=== PATIENT | female | born 1990 | race Caucasian/White ===

== ENCOUNTER → 2017-03-07 | Outpatient (REF) | payer MEDICAID, OTHER | LOC: M LAB REF 16:56 | PROVIDERS: ATTEND Advanced Practice Midwife | DX: Z11.3 Encounter for screening for infections with a predominantly sexual mode of transmission (principal) ==

== ENCOUNTER → 2017-03-07 | Outpatient (CLI) | payer MEDICAID, OTHER | LOC: M SMT 11:51 | PROVIDERS: ATTEND Advanced Practice Midwife | DX: Z11.3 Encounter for screening for infections with a predominantly sexual mode of transmission (principal) ==

== ENCOUNTER → 2017-03-21 | Outpatient (REF) | payer OTHER ==
[2017-03-21 17:35] LABS: ANION GAP 7 MEQ/L (8-16); BLOOD UREA NITROGEN 10 MG/DL (7-18); CALCIUM LEVEL 9.2 MG/DL (8.5-10.1); CARBON DIOXIDE LEVEL 27 MEQ/L (21-32); CHLORIDE LEVEL 107 MEQ/L (98-107); CREATININE FOR GFR 0.76 MG/DL (0.55-1.02); GLOMERULAR FILTRATION RATE > 60.0 (>60); GLUCOSE, FASTING 83 MG/DL (70-105); POTASSIUM SERUM 4.6 MEQ/L (3.5-5.1); SODIUM LEVEL 141 MEQ/L (136-145)
[2017-03-21 19:01] LABS: BASO % 0.9 % (0.0-1.0); EOS % 0.6 % (0.0-3.0); LARGE UNSTAINED CELL # 0.1 K/mm3 (0.0-0.4); LARGE UNSTAINED CELL % 2.5 % (0.0-4.0); LYMPH # 1.6 K/mm3 (1.5-6.5); LYMPH % 34.1 % (24.0-44.0); MEAN CORPUSCULAR HEMOGLOBIN 31.7 pg (27.0-33.0); MEAN CORPUSCULAR HGB CONC 33.3 g/dl (32.0-36.5); MEAN CORPUSCULAR VOLUME 95.2 fl (80.0-96.0); MONO # 0.4 K/mm3 (0.0-0.8); MONO % 7.4 % (0.0-5.0); NEUTROPHILS # 2.6 K/mm3 (1.8-7.7); NEUTROPHILS % 54.4 % (36.0-66.0); PLATELET COUNT, AUTOMATED 247 k/mm3 (150-450); WHITE BLOOD COUNT 4.7 K/mm3 (4.0-10.0)
[2017-03-21 20:16] LABS: ERYTHROCYTE SEDIMENTATION RATE 5 mm/hr (0-20)
== END ==
LOC: M LAB REF 16:13
PROVIDERS: ATTEND Family Medicine
DX: Z00.00 Encounter for general adult medical examination without abnormal findings (principal); F32.2 Major depressive disorder, single episode, severe without psychotic features; R55 Syncope and collapse

== ENCOUNTER → 2018-03-31 | Outpatient (CLI) | payer OTHER, MEDICAID ==
[2018-03-31 22:45] LABS: CHLAMYDIA DNA AMPLIFICATION NEGATIVE (NEGATIVE); GC DNA AMPLIFICATION NEGATIVE (NEGATIVE)
[2018-04-01 10:36] LABS: HEPATITIS C VIRUS ABY INDEX 0.1 INDEX (<0.8)
[2018-04-01 10:36] LABS: HEPATITIS B SURFACE ANTIGEN NEGATIVE (NEGATIVE); HIV 1&2 SCREEN CENTAUR NEGATIVE (NEGATIVE)
== END ==
LOC: M SMT 14:24
DX: Z11.3 Encounter for screening for infections with a predominantly sexual mode of transmission (principal)
CPT/HCPCS: 87340

== ENCOUNTER 2018-04-20 07:25 | Day surgery (SDC) | payer OTHER ==
[2018-04-20] MEDS ORDERED: ROCURONIUM BROMIDE 50 MG/5 ML VIAL As Ordered ×4 (07:50→07:52)
[2018-04-20] MEDS ORDERED: ONDANSETRON 4MG/2ML VIAL (J2405) As Ordered ×2 (07:50)
[2018-04-20] MEDS ORDERED: dexameTHASONE 4 MG/ML 1ML VIAL (J1100) As Ordered ×4 (07:50→09:06)
[2018-04-20] MEDS ORDERED: LIDOCAINE 2% INJ 100 MG/5 ML SDV (FOR ANES.) As Ordered ×4 (07:50→09:10)
[2018-04-20] MEDS ORDERED: PROPOFOL 200 MG/20 ML VIAL As Ordered ×2 (07:50)
[2018-04-20] MEDS ORDERED: fentaNYL 100 MCG/2 ML INJECTION (J3010) As Ordered ×2 (07:51)
[2018-04-20] MEDS ORDERED: MIDAZOLAM INJ 2 MG/2 ML VIAL (J2250) As Ordered ×2 (07:51)
[2018-04-20 08:07] LABS: CONTROL LINE UCG INT CTR LINE PRESENT; URINE PREG TEST NEGATIVE (NEGATIVE)
[2018-04-20] MEDS ORDERED: LR 1,000 ML IV ×4 (08:30→10:00)
[2018-04-20] MEDS ORDERED: LIDOCAINE 1% SDV 5 ML VIAL SQ ×2 (08:30)
[2018-04-20] MEDS ORDERED: GLYCOPYRROLATE INJ 0.2 MG/ML 2 ML VIAL As Ordered ×4 (08:52)
[2018-04-20] MEDS ORDERED: NEOSTIGMINE 10 MG/10 ML VIAL (J2710) As Ordered ×2 (08:52)
[2018-04-20] MEDS ORDERED: SUCCINYLCHOLINE 100 MG/5 ML SYRINGE (J0330) As Ordered ×2 (08:54)
[2018-04-20] MEDS: BUPIVACAINE HCL 0.5% 10 ML VIAL As Ordered ×2 (09:11)
[2018-04-20] MEDS ORDERED: MEPERIDINE INJ 25 MG/ML VIAL (J2175) IV ×2 (10:00)
[2018-04-20] MEDS ORDERED: ONDANSETRON 4MG/2ML VIAL (J2405) IV ×2 (10:00)
[2018-04-20] MEDS ORDERED: PERCOCET 5MG/325MG TAB PO ×4 (10:00)
[2018-04-20] MEDS ORDERED: fentaNYL 100 MCG/2 ML INJECTION (J3010) IV ×2 (10:00)
[2018-04-20] MEDS: HYDROcodone/APAP LIQUID 7.5-325MG 15ML UDC (LORTAB ELIXIR) PO ×2 (10:47)
[2018-04-20] MEDS: IBUPROFEN 800 MG TAB PO ×2 (10:48)
== END 2018-04-20 11:35 | disposition home or self-care (01) ==
LOC: M SDC 07:25
DX: J35.01 Chronic tonsillitis (principal); F32.9 Major depressive disorder, single episode, unspecified; F41.9 Anxiety disorder, unspecified
CPT/HCPCS: 42826

== ENCOUNTER 2018-04-25 10:59 | Emergency (ER) | payer OTHER ==
[2018-04-25] MEDS: KETOROLAC 30 MG/ML VIAL (J1885) IV (11:34)
[2018-04-25] MEDS: MORPHINE 4 MG/ML 1ML VIAL/SYRINGE (J2270) IV (11:34)
[2018-04-25] MEDS: NS 1,000 ML IV ×2 (11:35)
== END 2018-04-25 13:27 | disposition home or self-care (01) ==
LOC: M ED 10:59
DX: G89.18 Other acute postprocedural pain (principal)
CPT/HCPCS: J2270

== ENCOUNTER → 2018-04-27 | Outpatient (REF) | payer OTHER | LOC: M LAB REF 18:24 | DX: R87.612 Low grade squamous intraepithelial lesion on cytologic smear of cervix (LGSIL) (principal) | CPT/HCPCS: 88304 ==

== ENCOUNTER → 2018-06-30 | Outpatient (CLI) | payer OTHER ==
[~2018-06-30] MED LIST: FLAG500T PO; NORCOTAB PO; OXYC1TAB23 PO; PERC5TAB12 PO
--- NOTE | 2018-07-01 07:44 | REP ---
Clinical: Dating and viability. Technique: Transabdominal first trimester obstetrical ultrasound with color Doppler evaluation Findings: Single live early intrauterine is appreciated. Gestational sac with yolk sac and pole identified. Olive-rump length of 11 mm corresponds to 7 weeks 1 day gestational age with estimated date of delivery 02/15/2019 . heart rate equals 147 beats per minute. A small subchorionic hemorrhage identified inferior to the gestational sac measuring 14 x 8 x 21 mm. Impression: Single live early intrauterine at 7 weeks 1 day gestational age. Complete anatomical assessment should be performed and 19-20 weeks. Electronically Signed by Ac Allison MD 07/01/2018 07:35 A
== END ==
LOC: M RAD 12:20
PROVIDERS: ATTEND Nurse Practitioner Family
DX: Z36.89 Encounter for other specified antenatal screening (principal); Z3A.01 Less than 8 weeks gestation of pregnancy

== ENCOUNTER 2018-07-10 08:54 | Emergency (ER) | payer MEDICAID, OTHER ==
[~2018-07-10] VITALS: Ht 165.1 cm; Wt 68.2 kg
[~2018-07-10 08:54] MED LIST changes: -FLAG500T PO; -OXYC1TAB23 PO; -PERC5TAB12 PO
[2018-07-10] MEDS ORDERED: PERCOCET 5MG/325MG TAB PO ONE (09:30)
[2018-07-10 09:41] LABS: HEMATOCRIT 38.2 % (36.0-47.0); HEMOGLOBIN 12.7 g/dl (12.0-15.5); MEAN CORPUSCULAR HEMOGLOBIN 31.3 pg (27.0-33.0); MEAN CORPUSCULAR HGB CONC 33.2 g/dl (32.0-36.5); MEAN CORPUSCULAR VOLUME 94.1 fl (80.0-96.0); PLATELET COUNT, AUTOMATED 292 10^3/uL (150-450); RED BLOOD COUNT 4.06 10^6/uL (4.00-5.40); WHITE BLOOD COUNT 6.3 10^3/uL (4.0-10.0)
--- NOTE | 2018-07-10 10:56 | REP ---
Clinical: Status post medical . Evaluate for retained products of conception. Technique: Transabdominal pelvic ultrasound followed by transvaginal examination for better evaluation of the endometrium and adnexa with color Doppler evaluation of the ovaries. Findings: Bladder is partially collapsed and grossly unremarkable. Heterogeneous anteverted uterus measures 11.0 x 5.1 x 6.8 cm. The endometrial complex is heterogeneous and measures 23 mm thickness. Bilateral ovaries are normal in appearance and vascularity without evidence for torsion. Right ovary measures 3.2 x 2.2 x 2.0 cm with 1.8 cm complex cyst likely corpus luteum ; R I = 0.58 . Left ovary measures 3.1 x 1.0 x 1.4 cm ; R I = 0.64 . No significant pelvic fluid or adnexal mass lesion . Impression: 1. Thickened endometrium with subtle elements of vascularity are concerning for retained products of conception. 2. Suspected resolving right corpus luteal cyst. Electronically Signed by Ac Allison MD 07/10/2018 10:49 A
[2018-07-10 12:30] VITALS: BP 107/64
[2018-07-10] MEDS ORDERED: PERC5TAB12 PO (12:50)
[2018-07-10] MEDS ORDERED: FLAG500T PO (12:52)
[2018-07-13] MEDS ORDERED: OXYC1TAB23 PO (10:41)
== END 2018-07-10 12:58 | disposition home or self-care (01) ==
LOC: M ED 08:54
DX: O73.1 Retained portions of placenta and membranes, without hemorrhage (principal); O23.599 Infection of other part of genital tract in pregnancy, unspecified trimester; O99.340 Other mental disorders complicating pregnancy, unspecified trimester; F33.9 Major depressive disorder, recurrent, unspecified; F41.9 Anxiety disorder, unspecified; O99.519 Diseases of the respiratory system complicating pregnancy, unspecified trimester; J30.2 Other seasonal allergic rhinitis; Z3A.00 Weeks of gestation of pregnancy not specified

== ENCOUNTER 2018-07-16 10:12 | Day surgery (SDC) | payer OTHER ==
[~2018-07-16] VITALS: Ht 167.6 cm; Wt 68.7 kg
[~2018-07-16 10:12] MED LIST changes: +FLAG500T PO; +OXYC1TAB23 PO; +PERC5TAB12 PO
[2018-07-16] MEDS ORDERED: LR 1,000 ML IV ONE (10:30)
[2018-07-16] MEDS ORDERED: DOXYCYCLINE HYCLATE 100 MG TAB PO ONE ×2 (10:30→14:00)
[2018-07-16] MEDS ORDERED: LIDOCAINE 1% SDV INJ 30 ML VIAL As Ordered ONE (11:42)
[2018-07-16] MEDS ORDERED: fentaNYL 100 MCG/2 ML INJECTION (J3010) As Ordered ONE (11:43)
[2018-07-16] MEDS ORDERED: LIDOCAINE 2% INJ 100 MG/5 ML SDV (FOR ANES.) As Ordered ONE (11:43)
[2018-07-16] MEDS ORDERED: MIDAZOLAM INJ 2 MG/2 ML VIAL (J2250) As Ordered ONE (11:43)
[2018-07-16] MEDS ORDERED: METOCLOPRAMIDE INJ 10MG/2ML VIAL (J2765) As Ordered ONE (11:43)
[2018-07-16] MEDS ORDERED: PROPOFOL 200 MG/20 ML VIAL As Ordered ONE ×2 (11:43→11:45)
[2018-07-16] MEDS ORDERED: ONDANSETRON 4MG/2ML VIAL (J2405) As Ordered ONE (11:44)
[2018-07-16] MEDS ORDERED: KETOROLAC 60 MG/2 ML VIAL (J1885) As Ordered ONE (11:44)
[2018-07-16] MEDS ORDERED: SEVOFLURANE INHAL SOLN 250 ML BTL As Ordered ONE (12:14)
[2018-07-16] MEDS ORDERED: ACETAMINOPHEN 500 MG TAB As Ordered ONE (12:56)
[2018-07-16] MEDS ORDERED: LR 1,000 ML IV SCH (13:15)
[2018-07-16 13:50] VITALS: BP 120/82
[2018-07-16] MEDS ORDERED: ACETAMINOPHEN 500 MG TAB PO ONE (14:00)
[2018-07-16] MEDS ORDERED: OXYC1TAB23 PO ×2 (14:38→17:16)
--- NOTE | 2018-07-16 15:59 | RO ---
DATE OF PROCEDURE: 07/16/2018 PREOPERATIVE DIAGNOSIS: Incomplete . POSTOPERATIVE DIAGNOSIS: Incomplete . PROCEDURE: Dilation, evacuation and curettage. SURGEON: Dr. Andrea Adhikari HUMAN RELATIONS TEACHER: Dr. Meli Barron ANESTHESIA: Local with sedation. ESTIMATED BLOOD LOSS: 50 mL. URINE OUTPUT: 50 mL. FINDINGS: Moderate amounts of products of conception. OPERATIVE SUMMARY: The patient taken to the operating room where IV sedation was given. She was prepped and draped in sterile fashion in the dorsal lithotomy position. The bladder was emptied with a catheter. A speculum was placed in the vagina. The cervix was injected circumferentially with 18 mL of 1% lidocaine. The anterior lip of the cervix was grasped with a tenaculum. The cervix was dilated with tapered dilators. A #9 mm suction curet was placed through the internal os. Suction device was activated. The curet was gently rotated until products of conception were noted to come through the suction tube. Sharp curettage was performed. The uterine cavity was deemed to be empty. All instruments were removed. Sponge and instrument counts were correct.
== END 2018-07-16 14:15 | disposition home or self-care (01) ==
LOC: M SDC 10:12
PROVIDERS: ATTEND Specialist
DX: O02.1 Missed abortion (principal); F41.9 Anxiety disorder, unspecified; F32.9 Major depressive disorder, single episode, unspecified; R51 Headache; J30.89 Other allergic rhinitis
CPT/HCPCS: 59820; 88305; J1885; J2250; J2405; J2765; J3010

== ENCOUNTER 2018-12-06 14:41 | Emergency (ER) | payer MEDICAID, OTHER ==
[~2018-12-06] VITALS: Ht 167.6 cm; Wt 63.6 kg
[2018-12-06 14:41] VITALS: BP 120/66
[~2018-12-06 14:41] MED LIST changes: +HYDR-3715 PO; -NORCOTAB PO
[2018-12-06 15:08] LABS: HEMOGLOBIN 13.1 g/dl (12.0-15.5); MEAN CORPUSCULAR HEMOGLOBIN 31.2 pg (27.0-33.0); MEAN CORPUSCULAR HGB CONC 32.8 g/dl (32.0-36.5); MEAN CORPUSCULAR VOLUME 95.2 fl (80.0-96.0); PLATELET COUNT, AUTOMATED 229 10^3/uL (150-450); WHITE BLOOD COUNT 6.4 10^3/uL (4.0-10.0)
[2018-12-06 15:42] LABS: BLOOD UREA NITROGEN 13 MG/DL (7-18); CALCIUM LEVEL 8.6 MG/DL (8.5-10.1); CARBON DIOXIDE LEVEL 29 MEQ/L (21-32); CHLORIDE LEVEL 105 MEQ/L (98-107); CREATININE FOR GFR 0.99 MG/DL (0.55-1.30); GLOMERULAR FILTRATION RATE > 60.0 (>60); GLUCOSE, FASTING 84 MG/DL (70-100); MAGNESIUM LEVEL 1.7 MG/DL (1.8-2.4); POTASSIUM SERUM 4.2 MEQ/L (3.5-5.1); SODIUM LEVEL 139 MEQ/L (136-145)
[2018-12-06] MEDS ORDERED: PREVTAB2 (16:44)
[2018-12-06] MEDS ORDERED: ACET-683 PO (16:44)
[2018-12-06] MEDS ORDERED: KETOROLAC 30 MG/ML VIAL (J1885) IV ONE (17:00)
[2018-12-06] MEDS ORDERED: diphenhydrAMINE INJ 50MG/ML VIAL (J1200) IV ONE (17:00)
[2018-12-06] MEDS ORDERED: NS 1,000 ML IV ONE (17:00)
[2018-12-06] MEDS ORDERED: ACETAMINOPHEN 500 MG TAB PO ONE (17:00)
[2018-12-06] MEDS ORDERED: METOCLOPRAMIDE INJ 10MG/2ML VIAL (J2765) IV ONE (17:00)
[2018-12-06 17:06] LABS: HCG, SERUM QUALITATIVE NEGATIVE (NEGATIVE)
[2018-12-06] MEDS ORDERED: MAGNESIUM CHLORIDE 64 MG TABCR (SLO MAG) PO ONE (17:15)
== END 2018-12-06 17:54 | disposition left against medical advice (07) ==
LOC: M ED 14:41
DX: G43.909 Migraine, unspecified, not intractable, without status migrainosus (principal); Z53.21 Procedure and treatment not carried out due to patient leaving prior to being seen by health care provider

== ENCOUNTER → 2019-06-14 | Outpatient (CLI) | payer OTHER, MEDICAID ==
[~2019-06-14] MED LIST changes: +ACET-683 PO; +PREVTAB2
--- NOTE | 2019-06-14 18:26 | REP ---
Two-view chest: 06/14/2019. Indication: Cough. Bronchitis. Comparison: 08/13/2012. Findings: The lungs are clear. There is no pleural effusion or pneumothorax. The cardiomediastinal silhouette is unremarkable. Impression: No acute cardiopulmonary process. Electronically Signed by Martinez Crenshaw DO 06/14/2019 06:17 P
== END ==
LOC: M WUC 17:38
PROVIDERS: ATTEND Physician Assistant
DX: J20.9 Acute bronchitis, unspecified (principal)

== ENCOUNTER → 2019-08-04 | Outpatient (CLI) | payer OTHER, MEDICAID ==
[2019-08-04 14:46] LABS: HIV 1&2 SCREEN CENTAUR NEGATIVE (NEGATIVE)
== END ==
LOC: M PLALAB 11:45
PROVIDERS: ATTEND Advanced Practice Midwife
DX: Z11.3 Encounter for screening for infections with a predominantly sexual mode of transmission (principal)

== ENCOUNTER → 2019-08-04 | Outpatient (REF) | payer OTHER, MEDICAID ==
[2019-08-04 15:04] LABS: CHLAMYDIA DNA AMPLIFICATION NEGATIVE (NEGATIVE); GC DNA AMPLIFICATION NEGATIVE (NEGATIVE)
== END ==
LOC: M SFHCWAGY 12:50
PROVIDERS: ATTEND Advanced Practice Midwife
DX: Z12.4 Encounter for screening for malignant neoplasm of cervix (principal)

== ENCOUNTER → 2019-08-06 | Outpatient (CLI) | payer OTHER ==
--- NOTE | 2019-08-06 17:27 | REP ---
Focused right breast/axillary ultrasound: History: Mass in the axillary tail of the right breast. Findings: Focused sonographic evaluation of the right axilla demonstrates a 2.2 x 0.9 x 0.8 cm normal-appearing lymph node. No mass lesion is seen. No cyst is observed. Normal stromal elements and muscular tissues are seen. Impression: BIRADS category II benign findings. Clinical follow-up is advised.
== END ==
LOC: M WHC 13:45
PROVIDERS: ATTEND Advanced Practice Midwife
DX: N63.31 Unspecified lump in axillary tail of the right breast (principal)

== ENCOUNTER → 2019-08-27 | Outpatient (CLI) | payer OTHER, MEDICAID | LOC: M PLALAB 14:43 | PROVIDERS: ATTEND Surgery | DX: Z13.79 Encounter for other screening for genetic and chromosomal anomalies (principal) ==

== ENCOUNTER → 2019-09-15 | Outpatient (REF) | payer OTHER ==
[2019-09-15 16:38] LABS: URINE PREG TEST NEGATIVE (NEGATIVE)
[2019-09-15 16:44] LABS: APPEARANCE, URINE CLEAR (CLEAR); BACTERIA, URINE AUTO 1+ (NEGATIVE); BILIRUBIN, URINE AUTO NEGATIVE (NEGATIVE); BLOOD, URINE BLOOD NEGATIVE (NEGATIVE); COLOR, URINE STRAW (YELLOW); GLUCOSE, URINE (UA) AUTO NEGATIVE (NEGATIVE); KETONE, URINE AUTO NEGATIVE (NEGATIVE); LEUKOCYTE ESTERASE, URINE AUTO NEGATIVE (NEGATIVE); NITRITE, URINE AUTO NEGATIVE (NEGATIVE); PROTEIN, URINE AUTO NEGATIVE (NEGATIVE); RBC, URINE AUTO 0 /HPF (0-3); SPECIFIC GRAVITY URINE AUTO 1.006 (1.002-1.035); SQUAMOUS EPITHELIAL CELL UR AU 1 /HPF (0-6); UROBILINOGEN, URINE AUTO 0.2 mg/dL (0.0-2.0); WBC, URINE AUTO 1 /HPF (0-3)
[2019-09-15 16:52] LABS: BASO # 0.1 10^3/uL (0.0-0.2); BASO % 0.9 % (0.0-1.0); EOS % 0.4 % (0.0-3.0); HEMATOCRIT 40.8 % (36.0-47.0); HEMOGLOBIN 13.4 g/dl (12.0-15.5); LYMPH # 1.8 10^3/uL (1.5-5.0); LYMPH % 33.5 % (24.0-44.0); MEAN CORPUSCULAR HEMOGLOBIN 31.5 pg (27.0-33.0); MEAN CORPUSCULAR HGB CONC 32.8 g/dl (32.0-36.5); MONO # 0.6 10^3/uL (0.0-0.8); MONO % 11.3 % (0.0-5.0); NEUTROPHILS # 2.9 10^3/uL (1.5-8.5); PLATELET COUNT, AUTOMATED 252 10^3/uL (150-450); RED BLOOD COUNT 4.25 10^6/uL (4.00-5.40); WHITE BLOOD COUNT 5.5 10^3/uL (4.0-10.0)
[2019-09-15 16:58] LABS: ALBUMIN 3.8 GM/DL (3.2-5.2); ALT/SGPT 17 U/L (12-78); BILIRUBIN,TOTAL 0.5 MG/DL (0.2-1.0); BLOOD UREA NITROGEN 9 MG/DL (7-18); C REACTIVE PROTEIN QUANTITATIV < 0.30 MG/DL (0.00-0.30); CALCIUM LEVEL 8.9 MG/DL (8.5-10.1); CARBON DIOXIDE LEVEL 27 MEQ/L (21-32); CHLORIDE LEVEL 107 MEQ/L (98-107); CREATININE FOR GFR 0.83 MG/DL (0.55-1.30); FREE T4 1.06 NG/DL (0.76-1.46); GLOMERULAR FILTRATION RATE > 60.0 (>60); GLUCOSE, FASTING 80 MG/DL (70-100); POTASSIUM SERUM 4.1 MEQ/L (3.5-5.1); RHEUMATOID FACTOR QUANT < 10.0 IU/ML (<15.0); SODIUM LEVEL 138 MEQ/L (136-145); TOTAL 25(OH) VITAMIN D 30.7 NG/ML (30.0-100.0); TOTAL PROTEIN 6.6 GM/DL (6.4-8.2); VITAMIN B12 LEVEL 321 PG/ML
[2019-09-15 17:03] LABS: FOLATE 10.2 NG/ML; HEMOGLOBIN A1c 4.8 %
[2019-09-15 17:42] LABS: ERYTHROCYTE SEDIMENTATION RATE 2 mm/hr (0-20)
== END ==
LOC: M SFHCCAPE 07:50
PROVIDERS: ATTEND Physician Assistant
DX: M25.50 Pain in unspecified joint (principal); R53.83 Other fatigue

== ENCOUNTER → 2019-09-24 | Outpatient (REF) | payer OTHER | LOC: M LAB REF 17:29 | PROVIDERS: ATTEND Dermatology | DX: D22.5 Melanocytic nevi of trunk (principal) ==

== ENCOUNTER → 2019-11-04 | Outpatient (REF) | payer OTHER | LOC: M LAB REF 17:00 | PROVIDERS: ATTEND Dermatology | DX: D17.39 Benign lipomatous neoplasm of skin and subcutaneous tissue of other sites (principal) ==

== ENCOUNTER → 2019-11-09 | Outpatient (REF) | payer OTHER | LOC: M LAB REF 15:56 | PROVIDERS: ATTEND Physician Assistant | DX: R05 Cough (principal) ==

== ENCOUNTER 2020-03-14 17:52 | Emergency (ER) | payer MEDICAID, OTHER ==
[~2020-03-14] VITALS: Ht 170.2 cm; Wt 73.9 kg
[2020-03-14 17:52] VITALS: BP 143/91
[2020-03-14] MEDS ORDERED: AIMO70IN2 (18:04)
[2020-03-14] MEDS ORDERED: NARA1TAB (18:04)
[2020-03-14] MEDS ORDERED: AMIT25TA (18:04)
[2020-03-14] MEDS ORDERED: CETI-24 (18:04)
[2020-03-14] MEDS ORDERED: MONT10TA4 (18:04)
== END 2020-03-14 21:10 | disposition left against medical advice (07) ==
LOC: M ED 17:52
DX: Z53.21 Procedure and treatment not carried out due to patient leaving prior to being seen by health care provider (principal)

== ENCOUNTER → 2020-03-28 | Outpatient (CLI) | payer OTHER ==
[~2020-03-28] MED LIST changes: +AIMO70IN2; +AMIT25TA; +CETI-24; +MONT10TA4; +NARA1TAB
--- NOTE | 2020-03-28 15:34 | REPVR ---
PROCEDURE INFORMATION: Exam: CT Maxillofacial Without Contrast, Sinus Exam date and time: 03/28/2020 3:22 PM Age: 29 years old Clinical indication: Sinusitis; Chronic; Additional info: Dns, chronic rhinitis TECHNIQUE: Imaging protocol: CT Maxillofacial without contrast. Focus on the sinuses. Radiation optimization: All CT scans at this facility use at least one of these dose optimization techniques: automated exposure control; mA and/or kV adjustment per patient size (includes targeted exams where dose is matched to clinical indication); or iterative reconstruction. COMPARISON: No relevant prior studies available. FINDINGS: Frontal sinuses: Normal. No air-fluid levels. Ethmoid air cells: Normal. No air-fluid levels. Sphenoid sinuses: Normal. No air-fluid levels. Maxillary sinuses: Normal. No air-fluid levels. Ostiomeatal units are patent. Nasal cavity/Septum: Unremarkable. Orbits: Orbits are normal. Globes are unremarkable. Bones/joints: Unremarkable. Soft tissues: Unremarkable. IMPRESSION: Unremarkable sinuses. The visualized paranasal sinuses are clear. There are no air fluid levels to suggest acute sinusitis. Electronically signed by: Joseph Tucker On 03/28/2020 15:34:34 PM
== END ==
LOC: M RAD 15:09
PROVIDERS: ATTEND Specialist
DX: J31.0 Chronic rhinitis (principal); J34.2 Deviated nasal septum

== ENCOUNTER → 2020-04-04 | Outpatient (REF) | payer OTHER ==
[2020-04-12 14:54] LABS: CHLAMYDIA DNA AMPLIFICATION NEGATIVE (NEGATIVE); GC DNA AMPLIFICATION NEGATIVE (NEGATIVE)
== END ==
LOC: M SFHCWAGY 13:19
PROVIDERS: ATTEND Nurse Practitioner Family
DX: R30.0 Dysuria (principal)

== ENCOUNTER → 2020-05-05 | Outpatient (REF) | payer OTHER | LOC: M SFHCWAGY 13:10 | PROVIDERS: ATTEND Nurse Practitioner Family | DX: R30.0 Dysuria (principal); N89.8 Other specified noninflammatory disorders of vagina ==

== ENCOUNTER → 2020-05-12 | Outpatient (CLI) | payer OTHER ==
--- NOTE | 2020-05-12 13:24 | REP ---
INDICATION: N92.0 MENORRHAGIA. COMPARISON: Comparison pelvic sonography January 16, 2012.. TECHNIQUE: Transabdominal and transvaginal scanning were performed. FINDINGS: Uterine dimensions are normal at 8.7 x 4.2 x 4.9 cm. Endometrial echo is 1.3 cm thick and centrally placed. The endometrium is somewhat heterogeneous and a possible endometrial polyp is seen 1.8 cm in diameter. There appears to be internal blood flow. No free fluid is seen in the cul-de-sac. Visualized bladder addison are smooth. The right ovary has dimensions of 2.3 x 1.3 x 2.3 cm. It's Doppler flow is normal with a resistive index of 0.60. The left ovary dimensions are normal as well at 3.0 x 1.6 x 1.6 cm. It's Doppler flow was normal with resistive index of 0.41. IMPRESSION: 1.8 x 1.0 x 1.5 cm endometrial polyp suspected. Otherwise negative pelvic sonography. <Electronically signed by Kayden La > 05/12/20 [id number]
== END ==
LOC: M WHC 11:01
PROVIDERS: ATTEND Nurse Practitioner Family
DX: N92.0 Excessive and frequent menstruation with regular cycle (principal)

== ENCOUNTER → 2020-06-15 | Outpatient (REF) | payer OTHER, MEDICAID ==
[~2020-06-15] MED LIST changes: -MONT10TA4; +MONT5TAB2
[2020-06-15 14:14] LABS: APPEARANCE, URINE CLOUDY (CLEAR); BACTERIA, URINE AUTO NEGATIVE (NEGATIVE); BILIRUBIN, URINE AUTO NEGATIVE (NEGATIVE); BLOOD, URINE BLOOD 2+ (NEGATIVE); COLOR, URINE YELLOW (YELLOW); GLUCOSE, URINE (UA) AUTO NEGATIVE (NEGATIVE); KETONE, URINE AUTO NEGATIVE (NEGATIVE); LEUKOCYTE ESTERASE, URINE AUTO NEGATIVE (NEGATIVE); NITRITE, URINE AUTO NEGATIVE (NEGATIVE); PROTEIN, URINE AUTO NEGATIVE (NEGATIVE); RBC, URINE AUTO 27 /HPF (0-3); SPECIFIC GRAVITY URINE AUTO 1.024 (1.002-1.035); SQUAMOUS EPITHELIAL CELL UR AU 11 /HPF (0-6); WBC, URINE AUTO 17 /HPF (0-3)
== END ==
LOC: M SMT 13:13
PROVIDERS: ATTEND Nurse Practitioner Women's Health
DX: N30.10 Interstitial cystitis (chronic) without hematuria (principal)

== ENCOUNTER → 2020-09-09 | Outpatient (CLI) | payer OTHER, MEDICAID ==
[~2020-09-09] MED LIST changes: -AMIT25TA; +AMIT25TA17; +MONT10TA10; -MONT5TAB2
== END ==
LOC: M LABSMTC 08:56
PROVIDERS: ATTEND Anesthesiology
DX: Z01.812 Encounter for preprocedural laboratory examination (principal); Z20.822 Contact with and (suspected) exposure to COVID-19

== ENCOUNTER 2020-09-14 10:40 | Day surgery (SDC) | payer OTHER ==
[~2020-09-14] VITALS: Ht 170.2 cm; Wt 72.1 kg
[~2020-09-14 10:40] MED LIST changes: +ALBU83IN INH; +CETI10CH PO; +CYAN500T14 PO; +FAMO20TA PO; +FLUO10CA16 PO; +LIDOCAINE 2% 100MG/5ML SDV (FOR ANES.) As Ordered ONE; +NS 1,000 ML IV ONE; +PROP10TA56 PO; +SING10TA32 PO; +TIZA2CAP PO; +TRAZ-186 PO; +ZOLO25TA PO; +fentaNYL 100 MCG/2 ML INJECTION (J3010) As Ordered ONE; +propofoL 200 MG/20 ML VIAL As Ordered ONE
--- NOTE | 2020-09-14 11:51 | ROOR ---
Patient Name: Rima Collado Procedure Date: 09/14/2020 11:33 AM Date of : 1990 Age: 30 Room: [facility] Gender: Female Note Status: Finalized Procedure: Upper GI endoscopy Indications: Suspected esophageal reflux Providers: Jeremi Flores Jr, MD Referring MD: SCOT Keller pa-c Requesting Provider: Medicines: Propofol per Anesthesia Complications: No immediate complications. Procedure: Pre-Anesthesia Assessment: - Prior to the procedure, a History and Physical was performed, and patient medications and allergies were reviewed. The patient is competent. The risks and benefits of the procedure and the sedation options and risks were discussed with the patient. All questions were answered and informed consent was obtained. Patient identification and proposed procedure were verified by the physician and the nurse in the pre-procedure area and in the procedure room. Mental Status Examination: alert and oriented. Airway Examination: normal oropharyngeal airway and neck mobility. Respiratory Examination: clear to auscultation. CV Examination: normal. ASA Grade Assessment: II - A patient with mild systemic disease. After reviewing the risks and benefits, the patient was deemed in satisfactory condition to undergo the procedure. The anesthesia plan was to use moderate sedation / analgesia (conscious sedation). Immediately prior to administration of medications, the patient was re-assessed for adequacy to receive sedatives. The heart rate, respiratory rate, oxygen saturations, blood pressure, adequacy of pulmonary ventilation, and response to care were monitored throughout the procedure. The physical status of the patient was re-assessed after the procedure. The Endoscope was introduced through the mouth, and advanced to the second part of duodenum. The upper GI endoscopy was accomplished without difficulty. The patient tolerated the procedure well. Findings: The upper third of the esophagus, middle third of the esophagus and lower third of the esophagus were normal. A small hiatal hernia was present. The cardia, gastric fundus, gastric body, prepyloric region of the stomach and pylorus were normal. Scattered moderate inflammation characterized by congestion (edema), erythema, friability and shallow ulcerations was found in the gastric antrum. Biopsies were taken with a cold forceps for histology. The duodenal bulb, first portion of the duodenum and second portion of the duodenum were normal. Impression: - Normal upper third of esophagus, middle third of esophagus and lower third of esophagus. - Small hiatal hernia. - Normal cardia, gastric fundus, gastric body, prepyloric region of the stomach and pylorus. - Gastritis. Biopsied. - Normal duodenal bulb, first portion of the duodenum and second portion of the duodenum. Recommendation: - Discharge patient to home (ambulatory). - Return to my office at appointment to be scheduled. Procedure Code(s): --- Professional --- 20517, Esophagogastroduodenoscopy, flexible, transoral; with biopsy, single or multiple Diagnosis Code(s): --- Professional --- K44.9, Diaphragmatic hernia without obstruction or gangrene K29.70, Gastritis, unspecified, without bleeding CPT copyright 2019 [employer]. All rights reserved. The codes documented in this report are preliminary and upon line assigner review may be revised to meet current compliance requirements. Jeremi Flores MD Jeremi Flores Jr, MD 09/14/2020 11:50:48 AM Electronically signed by Jeremi Flores Jr, MD Number of Addenda: 0 Note Initiated On: 09/14/2020 11:33 AM Estimated Blood Loss: Estimated blood loss: none.
--- NOTE | 2020-09-14 12:10 | ROOR ---
Patient Name: Rima Collado Procedure Date: 09/14/2020 11:35 AM Date of : 1990 Age: 30 Gender: Female Note Status: Finalized Procedure: Colonoscopy Indications: Rectal bleeding Providers: Jeremi Flores Jr, MD Referring MD: SCOT Keller pa-c Requesting Provider: Medicines: Propofol per Anesthesia Complications: No immediate complications. Procedure: Pre-Anesthesia Assessment: - Prior to the procedure, a History and Physical was performed, and patient medications and allergies were reviewed. The patient is competent. The risks and benefits of the procedure and the sedation options and risks were discussed with the patient. All questions were answered and informed consent was obtained. Patient identification and proposed procedure were verified by the physician and the nurse in the pre-procedure area and in the procedure room. Mental Status Examination: alert and oriented. Airway Examination: normal oropharyngeal airway and neck mobility. Respiratory Examination: clear to auscultation. CV Examination: normal. ASA Grade Assessment: I - A normal, healthy patient. After reviewing the risks and benefits, the patient was deemed in satisfactory condition to undergo the procedure. The anesthesia plan was to use moderate sedation / analgesia (conscious sedation). Immediately prior to administration of medications, the patient was re-assessed for adequacy to receive sedatives. The heart rate, respiratory rate, oxygen saturations, blood pressure, adequacy of pulmonary ventilation, and response to care were monitored throughout the procedure. The physical status of the patient was re-assessed after the procedure. The Colonoscope was introduced through the anus and advanced to the cecum, identified by appendiceal orifice and ileocecal valve. The colonoscopy was performed without difficulty. The patient tolerated the procedure well. The quality of the bowel preparation was adequate. Findings: The rectum, recto-sigmoid colon, sigmoid colon, descending colon, transverse colon, ascending colon, cecum, appendiceal orifice, ileocecal valve and ileum appeared normal. Biopsies for histology were taken with a cold forceps from the cecum, right colon, transverse colon and descending colon for evaluation of microscopic colitis. Estimated blood loss: none. Estimated blood loss: none. Non-bleeding external and internal hemorrhoids were found during retroflexion and during endoscopy. The hemorrhoids were Grade II (internal hemorrhoids that prolapse but reduce spontaneously). Impression: - The rectum, recto-sigmoid colon, sigmoid colon, descending colon, transverse colon, ascending colon, cecum, appendiceal orifice, ileocecal valve and terminal ileum are normal. Biopsied. Recommendation: - Discharge patient to home (ambulatory). - Return to my office at appointment to be scheduled. Procedure Code(s): --- Professional --- 69102, Colonoscopy, flexible; with biopsy, single or multiple Diagnosis Code(s): --- Professional --- K62.5, Hemorrhage of anus and rectum CPT copyright 2019 [employer]. All rights reserved. The codes documented in this report are preliminary and upon enrollment management coordinator review may be revised to meet current compliance requirements. Jeremi Flores MD Jeremi Flores Jr, MD 09/14/2020 12:09:51 PM Electronically signed by Jeremi Flores Jr, MD Number of Addenda: 0 Note Initiated On: 09/14/2020 11:35 AM Estimated Blood Loss: Estimated blood loss: none.
[2020-09-14 12:30] VITALS: BP 93/51
== END 2020-09-14 12:41 | disposition home or self-care (01) ==
LOC: M OPP 10:40
PROVIDERS: ATTEND Surgery
DX: K62.5 Hemorrhage of anus and rectum (principal); K64.8 Other hemorrhoids; K21.9 Gastro-esophageal reflux disease without esophagitis; K44.9 Diaphragmatic hernia without obstruction or gangrene; K29.70 Gastritis, unspecified, without bleeding; I10 Essential (primary) hypertension; Z79.899 Other long term (current) drug therapy; Z80.0 Family history of malignant neoplasm of digestive organs; Z91.018 Allergy to other foods
CPT/HCPCS: 43239; 45380; 88305; J3010

== ENCOUNTER 2020-09-21 11:31 | Observation (INO) | payer OTHER ==
[~2020-09-21] VITALS: Ht 170.2 cm; Wt 75.2 kg
[~2020-09-21 11:31] MED LIST changes: -LIDOCAINE 2% 100MG/5ML SDV (FOR ANES.) As Ordered ONE; -NS 1,000 ML IV ONE; -fentaNYL 100 MCG/2 ML INJECTION (J3010) As Ordered ONE; -propofoL 200 MG/20 ML VIAL As Ordered ONE
[2020-09-21] MEDS ORDERED: NS 1,000 ML IV ONE (12:20)
[2020-09-21] MEDS ORDERED: PANTOPRAZOLE 40MG VIAL (C9113 PER 1) IV ONE (12:20)
[2020-09-21] MEDS ORDERED: PROBCAP14 PO (12:44)
[2020-09-21] MEDS ORDERED: PROP20TA72 PO (12:44)
[2020-09-21] MEDS ORDERED: CETI-24 PO (12:44)
[2020-09-21 12:54] LABS: BASO # 0.1 10^3/uL (0.0-0.2); BASO % 0.7 % (0.0-1.0); EOS # 0.1 10^3/uL (0.0-0.5); EOS % 1.1 % (0.0-3.0); HEMATOCRIT 42.7 % (36.0-47.0); HEMOGLOBIN 14.5 g/dl (12.0-15.5); LYMPH % 40.1 % (24.0-44.0); MEAN CORPUSCULAR HEMOGLOBIN 31.8 pg (27.0-33.0); MEAN CORPUSCULAR VOLUME 93.6 fl (80.0-96.0); MONO # 0.8 10^3/uL (0.0-0.8); MONO % 10.1 % (2.0-8.0); NEUTROPHILS # 3.6 10^3/uL (1.5-8.5); NEUTROPHILS % 47.3 % (36.0-66.0); PLATELET COUNT, AUTOMATED 322 10^3/uL (150-450); RED BLOOD COUNT 4.56 10^6/uL (4.00-5.40); WHITE BLOOD COUNT 7.6 10^3/uL (4.0-10.0)
[2020-09-21 13:18] LABS: ALT/SGPT 16 U/L (12-78); BILIRUBIN,DIRECT < 0.1 MG/DL (0.0-0.2); BILIRUBIN,TOTAL 0.3 MG/DL (0.2-1.0); BLOOD UREA NITROGEN 17 MG/DL (7-18); CALCIUM LEVEL 9.6 MG/DL (8.5-10.1); CARBON DIOXIDE LEVEL 26 MEQ/L (21-32); CHLORIDE LEVEL 105 MEQ/L (98-107); CREATININE FOR GFR 0.82 MG/DL (0.55-1.30); GLOMERULAR FILTRATION RATE > 60.0 (>60); GLUCOSE, FASTING 101 MG/DL (70-100); POTASSIUM SERUM 3.9 MEQ/L (3.5-5.1); SODIUM LEVEL 137 MEQ/L (136-145)
[2020-09-21 13:23] LABS: HCG, SERUM QUALITATIVE NEGATIVE (NEGATIVE)
[2020-09-21 14:09] LABS: RSV AMPLIFICATION NEGATIVE (NEGATIVE)
[2020-09-21] MEDS ORDERED: traZODone 50 MG TAB PO PRN (14:40)
[2020-09-21] MEDS ORDERED: ALBUTEROL SULFATE 2.5 MG/0.5 ML INH NEB SOLN INH PRN (14:40)
--- NOTE | 2020-09-21 14:44 | HPEPDOC ---
[facility] Medical History & Physical Date of Admission Sep 21, 2020 Date of Service: Sep 21, 2020 Attending Physician: Yamile Whitehead MD History and Physical CHIEF COMPLAINT: rectal bleeding, bloody vomitus HISTORY OF PRESENT ILLNESS: Patient is a 30-year-old female with past medical history of recent diagnosis of ulcerative colitis, history of Covid 19, hiatal hernia, migraine headaches, depression, anxiety, hemorrhoids who presented to [facility] emergency room after having bright red blood per stool and in her vomitus this morning. The patient states she's been having ongoing vomiting since March 2020 has been following with a GI specialist in [place] who diagnosed her with colitis. She recently had an EGD/colonoscopy done [address] Flores showing what was believed to be ulcerative colitis and hiatal hernia. This morning at approximately 5:30 AM she woke up and had black tarry colored stool with bright red blood that filled her toilet. She stated the bleeding was slow but constant throughout the day and soaked several pads, she did not see any clots. She says she's also had associated bilateral lower quadrant cramping, 5/10, waxing and waning along with some epigastric discomfort. She ate breakfast but later stated to vomit bright red blood 1 associated with hot flashes and lightheadedness. She denies chest pain, shortness of breath, fevers but she did admit to some chills during her vomiting episode. Her vomiting has been an issue since last year as well and sometimes vomits multiple times a day. She states after her recent diagnosis of ulcerative colitis she was referred to [facility] GI and has a new patient appt with them on 10/02/2020. Due to multiple bleeding episodes and symptoms above, she came to the ER to be further evaluated today. In the ER, VS were stable. All labs were stable, H/H wnl. She had some abdominal discomfort in areas described above on exam. She had no bloody bowel movements or vomiting noticed by staff. Dr. Ugarte (ER) contacted environmental epidemiologist surgeon (Dr. Sorensen) who spoke with Dr. Flores (surgeon who did most recent EGD/colo)and recommended to admit to monitor. Blood transfusion consent obtained. She was admitted to hospitalist service for further monitoring of GI bleed, r/o UC flare. REVIEW OF SYSTEMS: CONSTITUTIONAL: Denies lack of energy, unexplained weight gain or weight loss, loss of appetite, fever, night sweats EYES: Denies eye drainage, eye pain, visual changes, dry/irritated eye EARS, NOSE, MOUTH, THROAT: Denies difficulty hearing, ringing in ears, mouth sores, loose teeth, sore throat, facial numbness or pain NECK: Denies swollen glands CARDIOVASCULAR: Denies irregular heartbeat, racing heart, chest pains, swelling of feet or legs, pain in legs with walking RESPIRATORY: Denies shortness of breath, night sweats, wheezing, sputum production, oxygen at home, coughing up blood, cough lasting > 1 month GASTROINTESTINAL: Denies abdominal pain, constipation, bloody stool, diarrhea, heartburn, nausea, vomiting GENITOURINARY: Denies painful urination, bloody urine, frequent urination, urgency, leaking urine, impotence MUSCULOSKELETAL: Denies joint pain, muscle pain, leg swelling INTEGUMENTARY: Denies rash, itching, new skin lesion, change in existing skin lesion, hair loss or increase, breast changes. NEUROLOGICAL: Denies headaches, difficulty walking, numbness or tingling PSYCHIATRIC: Denies recurrent bad thoughts, mood swings, hallucinations PAST MEDICAL HISTORY: ulcerative colitis, Hx Covid 19, hiatal hernia, migraine headaches, depression, anxiety, hemorrhoids PAST SURGICAL HISTORY: Colonoscopy/EGD 08/2020 Right ankle tendon surgery 2006, 2012 Tonsillectomy 2018 D&C 2019 FAMILY HISTORY: Father: Healthy. Alive. Mother: Diverticulitis. Alive. Maternal grandfather: Colon cancer. at 55 years old Maternal aunt: Cancer. Alive SOCIAL HISTORY: Denies alcohol, smoking or drug use. Resides locally with family. She is currently employed. 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 She follows with Dr. Mcintosh/ Dr. Flores (surgery), PCP- Jenny Hernandez PA-C. REferred to local [facility] GI for 10/02/2020 and has not seen yet. ALLERGIES: Please see below. HOME MEDICATIONS: Please see below. PHYSICAL EXAMINATION: VS: Please see below CONSTITUTIONAL: No acute distress, resting comfortably, AAO x 3 EYES: PERRLA, EOM intact HENT, MOUTH: Normocephalic, atraumatic, moist mucous membranes, NECK: SUPPLE, no JVD, no lymphadenopathy, no carotid bruit CV: Regular rate and rhythm, S1S2 normal, no murmurs/rubs/gallops RESPIRATORY: Clear to auscultation bilaterally, no rales/rhonchi/wheezes GI: mild abd discomfort in R and L lower quad, epigastric area. BS positive in 4 quadrants, soft, nondistended, no rebound or guarding, no organomegaly : Deferred MUSCULOSKELETAL: Normal ROM. No cyanosis, clubbing, swelling, joint deformity, extremity edema INTEGUMENTARY: Intact, no rashes, no lesions, no erythema NEUROLOGIC: Cranial Nerves II-XII are intact, no focal deficits PSYCHIATRIC: Mood and affect are normal LABORATORY DATA: Please see below IMAGING: None ASSESSMENT: 30-year-old female with past medical history of recent diagnosis of ulcerative colitis, history of Covid 19, hiatal hernia, migraine headaches, depression, anxiety, hemorrhoids admitted to hospitalist service for further monitoring of GI bleed, r/o UC flare. PLAN: GI bleed, r/o ulcerative colitis flare -Recent EGD/colonoscopy with diagnosis per patient of UC, hiatal hernia -H/H stable at 14/42, PLTs wnl -Stable VS, Not on IVFs -F/u CBC Q12H, telemetry, type and screen, blood consent obtained in event of H/H dropping -CLD, PPI IV BID -Surgery consulted (Dr. Sorensen), called from ER. Will discuss with them to consult/not consult GI while here Depression/Anxiety -C/w home medications Migarine headache -C/w home propranolol GERD -PPI BID DVT px -SCD/ teds DISPOSITION: Admitted to hospitalist service. Plan is discharge home when medically improved. Surgery to see. Vital Signs Vital Signs Date Time Temp Pulse Resp B/P (MAP) Pulse Ox O2 Delivery O2 Flow Rate FiO2 09/21/20 13:53 76 125/85 (98) 74 144/92 (109) 76 149/90 (109) 09/21/20 13:15 97 09/21/20 11:32 98.5 18 Room Air Laboratory Data Labs 24H Laboratory Tests 2 09/21/20 11:56: Immature Granulocyte % (Auto) 0.7, Neutrophils (%) (Auto) 47.3, Lymphocytes (%) (Auto) 40.1, Monocytes (%) (Auto) 10.1H, Eosinophils (%) (Auto) 1.1, Basophils (%) (Auto) 0.7, Neutrophils # (Auto) 3.6, Lymphocytes # (Auto) 3.0, Monocytes # (Auto) 0.8, Eosinophils # (Auto) 0.1, Basophils # (Auto) 0.1, Nucleated Red Blood Cells % (auto) 0.0, Anion Gap 6L, Glomerular Filtration Rate > 60.0, Calc ium Level 9.6, Total Bilirubin 0.3, Direct Bilirubin < 0.1, Aspartate Amino Transf (AST/SGOT) 8, Alanine Aminotransferase (ALT/SGPT) 16, Alkaline Phosphatase 78, Total Protein 7.0, Albumin 4.0, Albumin/Globulin Ratio 1.3, Human Chorionic Gonadotropin, Qual NEGATIVE 09/21/20 12:22: Lactic Acid Level 0.7 09/21/20 13:17: Coronavirus (COVID-19)(PCR) NEGATIVE, Influenza Type A (RT-PCR) NEGATIVE, Influenza Type B (RT-PCR) NEGATIVE, Respiratory Syncytial Virus (PCR) NEGATIVE CBC/BMP Laboratory Tests 09/21/20 11:56 Home Medications Scheduled Cetirizine HCl (Cetirizine HCl) 10 Mg Tablet, 10 MG PO DAILY Famotidine (Famotidine) 20 Mg Tablet, 20 MG PO DAILY Fluoxetine Hcl (Fluoxetine HCl) 10 Mg Capsule, 10 MG PO DAILY Lactobacillus Acidophilus (Probiotic) 1 Each Capsule, 1 CAP PO DAILY Propranolol HCl (Propranolol HCl) 20 Mg Tablet, 20 MG PO BID Scheduled PRN Albuterol Sulf (Albuterol Sulfate) 2.5 Mg/3 Ml Vial.neb, 2.5 MG INH PRN PRN for SOB/WHEEZING Trazodone HCl (Trazodone HCl) 50 Mg Tablet, 50 MG PO QHS PRN for SLEEP Allergies Coded Allergies: ENVIROMENTAL (Unverified Allergy, Intermediate, 09/13/20) A-FIB/CHADSVASC A-FIB History Current/History of A-Fib/PAF?: No Current PO Anticoag Therapy: No Age/Risk Factor Scoring CHADSVASC: CHADSVASC Response (Comments) Value Age Risk Factor Age < 65 years old 0 Gender Risk Factor Female 1 Hx of CHF No 0 Hx of HTN No 0 Hx of Stroke/TIA/or VTE No 0 Hx of Diabetes No 0 Hx of Vascular Disease No 0 Total 1 Treatment Treatment ordered: NONE Other anticoagulant ordered: Yamile Beard MD Sep 21, 2020 14:44
[2020-09-21 15:13] VITALS: BP 120/75
[2020-09-21 18:49] LABS: HEMATOCRIT 39.5 % (36.0-47.0); HEMOGLOBIN 13.3 g/dl (12.0-15.5); MEAN CORPUSCULAR HEMOGLOBIN 31.6 pg (27.0-33.0); MEAN CORPUSCULAR HGB CONC 33.7 g/dl (32.0-36.5); MEAN CORPUSCULAR VOLUME 93.8 fl (80.0-96.0); PLATELET COUNT, AUTOMATED 279 10^3/uL (150-450); RED BLOOD COUNT 4.21 10^6/uL (4.00-5.40); WHITE BLOOD COUNT 6.4 10^3/uL (4.0-10.0)
[2020-09-21 20:56] VITALS: BP 132/72
[2020-09-21] MEDS: PROPRANOLOL 20 MG TAB PO SCH (20:56)
[2020-09-21] MEDS: PANTOPRAZOLE 40MG VIAL (C9113 PER 1) IV SCH (20:56)
[2020-09-21 22:00] VITALS: BP 110/73
[2020-09-22 06:00] VITALS: BP 103/61
[2020-09-22 06:37] LABS: HEMATOCRIT 38.6 % (36.0-47.0); MEAN CORPUSCULAR HEMOGLOBIN 31.4 pg (27.0-33.0); MEAN CORPUSCULAR HGB CONC 33.7 g/dl (32.0-36.5); MEAN CORPUSCULAR VOLUME 93.2 fl (80.0-96.0); PLATELET COUNT, AUTOMATED 272 10^3/uL (150-450); RED BLOOD COUNT 4.14 10^6/uL (4.00-5.40); WHITE BLOOD COUNT 4.2 10^3/uL (4.0-10.0)
[2020-09-22 06:58] LABS: ALBUMIN 3.3 GM/DL (3.2-5.2); ALT/SGPT 14 U/L (12-78); BILIRUBIN,TOTAL 0.6 MG/DL (0.2-1.0); BLOOD UREA NITROGEN 12 MG/DL (7-18); CALCIUM LEVEL 8.5 MG/DL (8.5-10.1); CARBON DIOXIDE LEVEL 25 MEQ/L (21-32); CHLORIDE LEVEL 109 MEQ/L (98-107); CREATININE FOR GFR 0.74 MG/DL (0.55-1.30); GLOMERULAR FILTRATION RATE > 60.0 (>60); GLUCOSE, FASTING 84 MG/DL (70-100); POTASSIUM SERUM 3.6 MEQ/L (3.5-5.1); SODIUM LEVEL 140 MEQ/L (136-145); TOTAL PROTEIN 6.1 GM/DL (6.4-8.2)
[2020-09-22] MEDS: PANTOPRAZOLE 40MG VIAL (C9113 PER 1) IV SCH (08:17)
[2020-09-22] MEDS ORDERED: PROT1TAB2 PO (08:20)
[2020-09-22] MEDS: PROPRANOLOL 20 MG TAB PO SCH (08:22)
[2020-09-22] MEDS ORDERED: LACTOBACILLUS ACIDOPHILUS CAP (BACID) PO SCH (09:00)
[2020-09-22] MEDS ORDERED: FLUoxetine 10 MG CAP PO SCH (09:00)
--- NOTE | 2020-09-22 16:26 | DS.PDOC ---
Discharge Summary General Date of Admission Sep 21, 2020 at 13:50 Date of Discharge 09/22/20 Attending Physician: Yamile Whitehead MD Discharge Summary HISTORY OF PRESENT ILLNESS: Patient is a 30-year-old female with past medical history of colitis, history of Covid 19, hiatal hernia, migraine headaches, depression, anxiety, hemorrhoids who presented to [facility] emergency room after having bright red blood per stool and in her vomitus this morning. The patient states she's been having ongoing vomiting since March 2020 has been following with a GI specialist in [place] who diagnosed her with colitis. She recently had an EGD/colonoscopy done [address] Flores showing what was believed to be ulcerative colitis and hiatal hernia. This morning at approximately 5:30 AM she woke up and had black tarry colored stool with bright red blood that filled her toilet. She stated the bleeding was slow but constant throughout the day and soaked several pads, she did not see any clots. She says she's also had associated bilateral lower quadrant cramping, 5/10, waxing and waning along with some epigastric discomfort. She ate breakfast but later stated to vomit bright red blood 1 associated with hot flashes and lightheadedness. She denies chest pain, shortness of breath, fevers but she did admit to some chills during her vomiting episode. Her vomiting has been an issue since last year as well and sometimes vomits multiple times a day. She states after her recent diagnosis of ulcerative colitis she was referred to [facility] and has a new patient appt with them on 10/02/2020. Due to multiple bleeding episodes and symptoms above, she came to the ER to be further evaluated today. In the ER, VS were stable. All labs were stable, H/H wnl. She had some abdominal discomfort in areas described above on exam. She had no bloody bowel movements or vomiting noticed by staff. Dr. Ugarte (ER) contacted multi operation machine operator surgeon (Dr. Sorensen) who spoke with Dr. Flores (surgeon who did most recent EGD/colo)and recommended to admit to monitor. Blood transfusion consent obtained. She was admitted to hospitalist service for further monitoring of GI bleed. HOSPITAL COURSE: It was confirmed later with both GI and surgery who reviewed colonoscopy, that patient does NOT have ulcerative colitis changes on imaging. She had no increased bleeding overnight or significant drop in her H/H. She required no further imaging and both GI and surgery felt she could be followed up as o/p in surgical clinic within 1-2 weeks. She was started on PPI BID and discharged in stable condition on 09/22/20. REVIEW OF SYSTEMS: Neg except mentioned above PAST MEDICAL HISTORY: Hx of colitis Hx Covid 19, hiatal hernia, migraine headaches, depression, anxiety, hemorrhoids PAST SURGICAL HISTORY: Colonoscopy/EGD 08/2020 Right ankle tendon surgery 2006, 2012 Tonsillectomy 2018 D&C 2019 FAMILY HISTORY: Father: Healthy. Alive. Mother: Diverticulitis. Alive. Maternal grandfather: Colon cancer. at 55 years old Maternal aunt: Cancer. Alive SOCIAL HISTORY: Denies alcohol, smoking or drug use. Resides locally with family. She is currently employed. 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 She follows with Dr. Mcintosh/ Dr. Flores (surgery), PCP- Jenny Hernandez PA-C. REferred to local [facility] for 10/02/2020 and has not seen yet. ALLERGIES: Please see below. HOME MEDICATIONS: Please see below. PHYSICAL EXAMINATION: VS: Please see below CONSTITUTIONAL: No acute distress, resting comfortably, AAO x 3 EYES: PERRLA, EOM intact HENT, MOUTH: Normocephalic, atraumatic, moist mucous membranes, NECK: SUPPLE, no JVD, no lymphadenopathy, no carotid bruit CV: Regular rate and rhythm, S1S2 normal, no murmurs/rubs/gallops RESPIRATORY: Clear to auscultation bilaterally, no rales/rhonchi/wheezes GI: mild abd discomfort in R and L lower quad, epigastric area. BS positive in 4 quadrants, soft, nondistended, no rebound or guarding, no organomegaly : Deferred MUSCULOSKELETAL: Normal ROM. No cyanosis, clubbing, swelling, joint deformity, extremity edema INTEGUMENTARY: Intact, no rashes, no lesions, no erythema NEUROLOGIC: Cranial Nerves II-XII are intact, no focal deficits PSYCHIATRIC: Mood and affect are normal LABORATORY DATA: Please see below IMAGING: None ASSESSMENT: 30-year-old female with past medical history of colitis, history of Covid 19, hiatal hernia, migraine headaches, depression, anxiety, hemorrhoids admitted to hospitalist service for further monitoring of GI bleed. PLAN: GI bleed, unknown etiology -Recent EGD/colonoscopy with no diagnosis of colitis, only some gastritis on EGD -H/H remained stable, HD stable -Discussed case in detail with GI and surgery., -D/c famotidine, started on PPI BID. To f/u with surgery clinic as o/p in 1-2 weeks. Depression/Anxiety -C/w home medications Migarine headache -C/w home propranolol GERD -PPI BID DISPOSITION: D/c home today with f/u with GI clinic, encouraged to f/u with PCP also TIME SPENT ON DISCHARGE: 35 minutes. Vital Signs/I&Os Vital Signs Date Time Temp Pulse Resp B/P (MAP) Pulse Ox O2 Delivery O2 Flow Rate FiO2 09/22/20 06:00 97.8 70 20 103/61 (75) 98 09/21/20 15:13 Room Air I&O- Last 24 Hours up to 6 AM 09/22/20 05:59 Intake Total 2080 ml Output Total 300 ml Balance 1780 ml Laboratory Data Labs 24H Laboratory Tests 2 09/21/20 18:08: Nucleated Red Blood Cells % (auto) 0.0 09/22/20 05:20: Nucleated Red Blood Cells % (auto) 0.0, Anion Gap 6L, Glomerular Filtration Rate > 60.0, Calcium Level 8.5, Total Bilirubin 0.6#, Aspartate Amino Transf (AST/SGOT) 6L, Alanine Aminotransferase (ALT/SGPT) 14, Alkaline Phosphatase 65, Total Protein 6.1L, Albumin 3.3, Albumin/Globulin Ratio 1.2 CBC/BMP Laboratory Tests 09/21/20 18:08 09/22/20 05:20 Discharge Medications Scheduled Cetirizine HCl (Cetirizine HCl) 10 Mg Tablet, 10 MG PO DAILY, (Reported) Fluoxetine Hcl (Fluoxetine HCl) 10 Mg Capsule, 10 MG PO DAILY, (Reported) Lactobacillus Acidophilus (Probiotic) 1 Each Capsule, 1 CAP PO DAILY, (Reported) Pantoprazole Sodium (Protonix) 40 Mg Tablet.dr, 40 MG PO BID Propranolol HCl (Propranolol HCl) 20 Mg Tablet, 20 MG PO BID, (Reported) Scheduled PRN Albuterol Sulf (Albuterol Sulfate) 2.5 Mg/3 Ml Vial.neb, 2.5 MG INH PRN PRN for SOB/WHEEZING, (Reported) Trazodone HCl (Trazodone HCl) 50 Mg Tablet, 50 MG PO QHS PRN for SLEEP, (Reported) Allergies Coded Allergies: ENVIROMENTAL (Unverified Allergy, Intermediate, 09/13/20) Yamile Whitehead MD Sep 22, 2020 16:26
== END 2020-09-22 10:40 | disposition home or self-care (01) ==
LOC: M ED 11:31 → M ED INP 13:50 → INTOOBSV 13:50 → ENRESERV 14:24 → M MSPAV 14:56
PROVIDERS: ADMIT Internal Medicine; ATTEND Internal Medicine
DX: K92.2 Gastrointestinal hemorrhage, unspecified (principal); K21.9 Gastro-esophageal reflux disease without esophagitis; K44.9 Diaphragmatic hernia without obstruction or gangrene; G43.909 Migraine, unspecified, not intractable, without status migrainosus; Z86.16 Personal history of COVID-19; F41.9 Anxiety disorder, unspecified; F32.9 Major depressive disorder, single episode, unspecified; Z79.899 Other long term (current) drug therapy
CPT/HCPCS: 36415; 80048; 80053; 80076; 83605; 84703; 85025; 85027; 86850; 86900; 86901; 87631; 93041; 96361; 96374; 96376; 99285; C9113

== ENCOUNTER 2020-11-01 09:29 | Emergency (ER) | payer MEDICAID, OTHER ==
[~2020-11-01] VITALS: Ht 170.2 cm; Wt 75.9 kg
[~2020-11-01 09:29] MED LIST changes: +CETI-24 PO; +PROBCAP14 PO; +PROP20TA72 PO; +PROT1TAB2 PO
[2020-11-01 10:51] LABS: HEMATOCRIT 41.4 % (36.0-47.0); HEMOGLOBIN 13.8 g/dl (12.0-15.5); MEAN CORPUSCULAR HEMOGLOBIN 31.2 pg (27.0-33.0); MEAN CORPUSCULAR HGB CONC 33.3 g/dl (32.0-36.5); MEAN CORPUSCULAR VOLUME 93.7 fl (80.0-96.0); PLATELET COUNT, AUTOMATED 286 10^3/uL (150-450); RED BLOOD COUNT 4.42 10^6/uL (4.00-5.40); WHITE BLOOD COUNT 6.6 10^3/uL (4.0-10.0)
[2020-11-01 11:06] LABS: APPEARANCE, URINE CLEAR (CLEAR); BACTERIA, URINE AUTO NEGATIVE (NEGATIVE); BILIRUBIN, URINE AUTO NEGATIVE (NEGATIVE); BLOOD, URINE BLOOD NEGATIVE (NEGATIVE); COLOR, URINE YELLOW (YELLOW); GLUCOSE, URINE (UA) AUTO NEGATIVE (NEGATIVE); KETONE, URINE AUTO NEGATIVE (NEGATIVE); LEUKOCYTE ESTERASE, URINE AUTO NEGATIVE (NEGATIVE); NITRITE, URINE AUTO NEGATIVE (NEGATIVE); PROTEIN, URINE AUTO NEGATIVE (NEGATIVE); RBC, URINE AUTO 0 /HPF (0-3); SPECIFIC GRAVITY URINE AUTO 1.008 (1.002-1.035); SQUAMOUS EPITHELIAL CELL UR AU 1 /HPF (0-6); UROBILINOGEN, URINE AUTO 0.2 mg/dL (0.0-2.0); WBC, URINE AUTO 0 /HPF (0-3)
[2020-11-01] MEDS ORDERED: NS 1,000 ML IV ONE (11:15)
[2020-11-01 11:31] LABS: FREE THYROXINE INDEX 3.2 % (1.3-4.8); THYROID STIMULATING HORMONE 2.67 uIU/ML (0.358-3.740); THYROXINE (T4) 9.6 UG/DL (4.5-12.0)
--- NOTE | 2020-11-01 11:39 | REP ---
INDICATION: left abd pain approx 8 weeks gestation COMPARISON: None. TECHNIQUE: Transabdominal and transvaginal 1st trimester obstetrical ultrasound with color Doppler evaluation. FINDINGS: Heterogeneous anteverted uterus measures 10.2 x 5.5 x 6.3 cm. Decidual reaction is identified and a presumed gestational sac is noted without yolk sac or pole. Mean sac diameter of 5.5 mm corresponds to 5 weeks 1 day gestational age. Subchorionic hemorrhage along the right-side of the gestational sac measuring 4.6 x 2.9 x 2.9 cm noted. The right ovary is normal in appearance and measures 2.9 x 2.2 x 2.8 cm (RI 0.47) and includes 1.7 cm involuting cyst/corpus luteum. Left ovary is not visualized on transvaginal or transabdominal imaging. No pelvic fluid or adnexal mass lesion noted. IMPRESSION: 1. Gestational sac without yolk sac or pole measuring at 5 weeks 1 day gestational age. Correlation with serial HCG levels and repeat ultrasound may be warranted. 2. Moderate subchorionic hemorrhage identified. <Electronically signed by Ac Allison > 11/01/20 [id number]
[2020-11-01 13:40] VITALS: BP 126/73
--- NOTE | 2020-11-02 12:41 | ECGEPIP ---
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
== END 2020-11-01 13:42 | disposition home or self-care (01) ==
LOC: M ED 09:29
DX: O46.91 Antepartum hemorrhage, unspecified, first trimester (principal); O26.891 Other specified pregnancy related conditions, first trimester; R00.2 Palpitations; Z3A.01 Less than 8 weeks gestation of pregnancy

== ENCOUNTER → 2020-11-06 | Outpatient (REF) | payer OTHER ==
[2020-11-06 18:29] LABS: HEMOGLOBIN 13.2 g/dl (12.0-15.5); MEAN CORPUSCULAR HEMOGLOBIN 31.6 pg (27.0-33.0); MEAN CORPUSCULAR VOLUME 95.7 fl (80.0-96.0); PLATELET COUNT, AUTOMATED 283 10^3/uL (150-450); RED BLOOD COUNT 4.18 10^6/uL (4.00-5.40); WHITE BLOOD COUNT 8.8 10^3/uL (4.0-10.0)
[2020-11-06 21:04] LABS: CHLAMYDIA DNA AMPLIFICATION NEGATIVE (NEGATIVE); GC DNA AMPLIFICATION NEGATIVE (NEGATIVE)
[2020-11-07 10:45] LABS: HEPATITIS C VIRUS ABY INDEX < 0.0 INDEX (<0.8); HIV 1&2 SCREEN CENTAUR NEGATIVE (NEGATIVE)
== END ==
LOC: M PLALAB 15:05
PROVIDERS: ATTEND Advanced Practice Midwife
DX: Z34.81 Encounter for supervision of other normal pregnancy, first trimester (principal)

== ENCOUNTER 2020-11-19 08:14 | Emergency (ER) | payer MEDICAID, OTHER ==
[~2020-11-19] VITALS: Ht 170.2 cm; Wt 77.5 kg
[2020-11-19] MEDS ORDERED: PRENTAB53 PO (08:21)
[2020-11-19] MEDS ORDERED: NS 1,000 ML IV ONE (08:50)
[2020-11-19 09:11] LABS: BASO % 0.5 % (0.0-1.0); EOS % 0.2 % (0.0-3.0); HEMATOCRIT 40.6 % (36.0-47.0); HEMOGLOBIN 13.5 g/dl (12.0-15.5); LYMPH # 1.7 10^3/uL (1.5-5.0); LYMPH % 19.6 % (24.0-44.0); MEAN CORPUSCULAR HEMOGLOBIN 31.3 pg (27.0-33.0); MEAN CORPUSCULAR HGB CONC 33.3 g/dl (32.0-36.5); MEAN CORPUSCULAR VOLUME 94.2 fl (80.0-96.0); MONO # 0.8 10^3/uL (0.0-0.8); MONO % 9.4 % (2.0-8.0); NEUTROPHILS # 5.9 10^3/uL (1.5-8.5); NEUTROPHILS % 69.7 % (36.0-66.0); PLATELET COUNT, AUTOMATED 281 10^3/uL (150-450); RED BLOOD COUNT 4.31 10^6/uL (4.00-5.40); WHITE BLOOD COUNT 8.5 10^3/uL (4.0-10.0)
--- NOTE | 2020-11-19 10:02 | REP ---
INDICATION: lower abd pain. No history of vaginal bleeding COMPARISON: 11/02/2019 TECHNIQUE: Transvesical only FINDINGS: Once again, there is echogenic material seen within an intrauterine gestational sac. The mean crown-rump length measurement is consistent with an 8 week 0 day gestational age. Doppler interrogation of the pole shows a heart rate of 161 beats per minute. There is a small anechoic 1.1 x 1.6 x 2.5 cm sized area adjacent to the decidual reaction. IMPRESSION: Persistent area of chorionic nonfusion at this early stage of gestation versus resolving subchorionic hemorrhage. There is no history of vaginal bleeding. Follow-up is recommended. <Electronically signed by William Brito > 11/19/20 [id number]
[2020-11-19] MEDS ORDERED: RA M1.74 PO (10:41)
[2020-11-19 10:48] VITALS: BP 112/67
== END 2020-11-19 10:53 | disposition home or self-care (01) ==
LOC: M ED 08:14
DX: O99.611 Diseases of the digestive system complicating pregnancy, first trimester (principal); K59.00 Constipation, unspecified; Z3A.08 8 weeks gestation of pregnancy; Z79.899 Other long term (current) drug therapy

== ENCOUNTER → 2020-12-04 | Outpatient (CLI) | payer OTHER, MEDICAID ==
[~2020-12-04] MED LIST changes: +PRENTAB53 PO; +RA M1.74 PO
== END ==
LOC: M PLALAB 11:36
PROVIDERS: ATTEND Advanced Practice Midwife
DX: Z34.81 Encounter for supervision of other normal pregnancy, first trimester (principal)

== ENCOUNTER 2021-01-05 15:27 | Emergency (ER) | payer MEDICAID, OTHER ==
[~2021-01-05] VITALS: Ht 170.2 cm; Wt 79.3 kg
[2021-01-05] MEDS ORDERED: PEPC1TAB5 PO (15:35)
[2021-01-05] MEDS ORDERED: ACETAMINOPHEN *IV* 1,000 MG in IV 1 EA IV ONE (16:25)
[2021-01-05 17:02] LABS: BASO % 0.5 % (0.0-1.0); EOS % 0.5 % (0.0-3.0); HEMATOCRIT 37.5 % (36.0-47.0); HEMOGLOBIN 12.7 g/dl (12.0-15.5); LYMPH # 2.5 10^3/uL (1.5-5.0); LYMPH % 29.9 % (24.0-44.0); MEAN CORPUSCULAR HEMOGLOBIN 31.4 pg (27.0-33.0); MEAN CORPUSCULAR HGB CONC 33.9 g/dl (32.0-36.5); MEAN CORPUSCULAR VOLUME 92.6 fl (80.0-96.0); MONO # 0.9 10^3/uL (0.0-0.8); MONO % 10.4 % (2.0-8.0); NEUTROPHILS # 4.8 10^3/uL (1.5-8.5); PLATELET COUNT, AUTOMATED 251 10^3/uL (150-450); RED BLOOD COUNT 4.05 10^6/uL (4.00-5.40); WHITE BLOOD COUNT 8.2 10^3/uL (4.0-10.0)
[2021-01-05 17:18] LABS: ALBUMIN 3.1 GM/DL (3.2-5.2); ALT/SGPT 12 U/L (12-78); BILIRUBIN,DIRECT < 0.1 MG/DL (0.0-0.2); BILIRUBIN,TOTAL 0.1 MG/DL (0.2-1.0); BLOOD UREA NITROGEN 12 MG/DL (7-18); CALCIUM LEVEL 9.1 MG/DL (8.5-10.1); CARBON DIOXIDE LEVEL 25 MEQ/L (21-32); CHLORIDE LEVEL 105 MEQ/L (98-107); CREATININE FOR GFR 0.68 MG/DL (0.55-1.30); GLOMERULAR FILTRATION RATE > 60.0 (>60); GLUCOSE, FASTING 88 MG/DL (70-100); LIPASE 106 U/L (73-393); POTASSIUM SERUM 3.8 MEQ/L (3.5-5.1); SODIUM LEVEL 137 MEQ/L (136-145); TOTAL PROTEIN 6.1 GM/DL (6.4-8.2)
--- NOTE | 2021-01-05 17:30 | REP ---
INDICATION: ruq pain COMPARISON: None. TECHNIQUE: Real time busch scale ultrasound examination using curved array transducer. FINDINGS: Liver is relatively normal in appearance and size. There is a 1.1 cm rounded hyperechoic focus in the right lobe likely representing small benign hemangioma. Pancreas is incompletely evaluated due to interposed bowel gas. The gallbladder is normal and without gallstones, wall thickening, or pericholecystic fluid. No biliary ductal dilatation is appreciated and the common bile duct measures 3.1 mm diameter. Right kidney is normal in reniform shape without hydronephrosis and measures 11.2 x 4.3 x 3.8 cm. No ascites in the visualized right upper quadrant. IMPRESSION: Essentially normal right upper quadrant ultrasound. Suspected small hemangioma within the liver. <Electronically signed by Ac Allison > 01/05/21 [id number]
--- NOTE | 2021-01-05 17:31 | REP ---
INDICATION: umbilical pain, 2nd trimester COMPARISON: 11/19/2020 TECHNIQUE: Transabdominal obstetrical ultrasound with color Doppler evaluation. FINDINGS: Examination demonstrates a single live intrauterine in variable presentation. motion is identified by technologist. Placenta is noted posterior and grade 0 without evidence for placenta previa or abruption. Amniotic fluid volume is normal. Cervix measures 3.3 cm in length and appears closed.. Selected gestational age: 14 weeks 5 days with ZACH 07/01/2021. FHR equals 153 beats per minute. IMPRESSION: Single live intrauterine . No gross abnormalities are identified. Complete anatomical assessment should be performed at 19-21 weeks. <Electronically signed by Ac Allison > 01/05/21 [id number]
[2021-01-05 18:40] VITALS: BP 118/70
--- NOTE | 2021-01-09 11:50 | ED PDOC ---
Post-Departure Follow-Up radiology report faxed to danyel Hernandez Sarah MD Jan 09, 2021 11:50
== END 2021-01-05 18:46 | disposition home or self-care (01) ==
LOC: M ED 15:27
DX: O26.892 Other specified pregnancy related conditions, second trimester (principal); R10.9 Unspecified abdominal pain; Z3A.15 15 weeks gestation of pregnancy
CPT/HCPCS: 76705; 76815; 80048; 80076; 81001; 83690; 85025; 93041; 96374; 99284; J0131

== ENCOUNTER → 2021-03-26 | Outpatient (CLI) | payer OTHER ==
[~2021-03-26] MED LIST changes: +PEPC1TAB5 PO
[2021-03-26 17:15] LABS: HEMATOCRIT 35.2 % (36.0-47.0); HEMOGLOBIN 11.6 g/dl (12.0-15.5); MEAN CORPUSCULAR HEMOGLOBIN 31.4 pg (27.0-33.0); MEAN CORPUSCULAR VOLUME 95.1 fl (80.0-96.0); PLATELET COUNT, AUTOMATED 286 10^3/uL (150-450); WHITE BLOOD COUNT 10.5 10^3/uL (4.0-10.0)
[2021-03-26 19:08] LABS: GC DNA AMPLIFICATION NEGATIVE (NEGATIVE)
== END ==
LOC: M PLALAB 14:18
PROVIDERS: ATTEND Specialist
DX: Z34.80 Encounter for supervision of other normal pregnancy, unspecified trimester (principal); Z3A.00 Weeks of gestation of pregnancy not specified

== ENCOUNTER 2021-04-06 10:11 | Outpatient (CLI) | payer OTHER ==
[~2021-04-06] VITALS: Ht 170.2 cm; Wt 90.5 kg
[2021-04-06 10:32] VITALS: BP 113/64
[2021-04-06] MEDS ORDERED: OMEP10CASR PO (10:34)
[2021-04-06] MEDS ORDERED: APAP325T4 PO (10:34)
[2021-04-06] MEDS ORDERED: FIOR1CAP PO (10:34)
[2021-04-06] MEDS ORDERED: HOME MED LIST COMPLETE! XX SCH (10:35)
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
== END 2021-04-06 11:47 | disposition home or self-care (01) ==
LOC: M LDO 10:11
PROVIDERS: ATTEND Advanced Practice Midwife
DX: O26.892 Other specified pregnancy related conditions, second trimester (principal); R10.10 Upper abdominal pain, unspecified; Z3A.27 27 weeks gestation of pregnancy; Z91.018 Allergy to other foods

== ENCOUNTER → 2021-04-27 | Outpatient (CLI) | payer OTHER ==
[~2021-04-27] MED LIST changes: +APAP325T4 PO; +FIOR1CAP PO; +OMEP10CASR PO
[2021-04-27 15:59] LABS: HEMATOCRIT 34.5 % (36.0-47.0); HEMOGLOBIN 11.1 g/dl (12.0-15.5); MEAN CORPUSCULAR HEMOGLOBIN 30.2 pg (27.0-33.0); MEAN CORPUSCULAR HGB CONC 32.2 g/dl (32.0-36.5); MEAN CORPUSCULAR VOLUME 93.8 fl (80.0-96.0); PLATELET COUNT, AUTOMATED 299 10^3/uL (150-450); RED BLOOD COUNT 3.68 10^6/uL (4.00-5.40)
[2021-04-27 16:23] LABS: ALBUMIN 2.5 GM/DL (3.2-5.2); ALT/SGPT 17 U/L (12-78); BILIRUBIN,DIRECT < 0.1 MG/DL (0.0-0.2); BILIRUBIN,TOTAL 0.1 MG/DL (0.2-1.0)
== END ==
LOC: M PLALAB 13:23
PROVIDERS: ATTEND Advanced Practice Midwife
DX: Z34.83 Encounter for supervision of other normal pregnancy, third trimester (principal); Z3A.00 Weeks of gestation of pregnancy not specified

== ENCOUNTER 2021-05-05 09:08 | Outpatient (CLI) | payer OTHER ==
[~2021-05-05] VITALS: Ht 170.2 cm; Wt 95.2 kg
[2021-05-05 09:27] VITALS: BP 127/69
== END 2021-05-05 10:15 | disposition home or self-care (01) ==
LOC: M LDO 09:08
PROVIDERS: ATTEND Obstetrics & Gynecology
DX: O26.892 Other specified pregnancy related conditions, second trimester (principal); Z3A.27 27 weeks gestation of pregnancy

== ENCOUNTER 2021-05-20 08:43 | Outpatient (CLI) | payer OTHER ==
[~2021-05-20] VITALS: Ht 170.2 cm; Wt 96.1 kg
[2021-05-20 09:08] VITALS: BP 111/72
[2021-05-20] MEDS ORDERED: REGL10TA6 PO (09:21)
[2021-05-20] MEDS ORDERED: ZOFR4TAB16 PO (09:21)
[2021-05-20] MEDS ORDERED: HOME MED LIST COMPLETE! XX SCH (09:25)
[2021-05-20 09:55] VITALS: BP 119/70
[2021-05-20 09:56] LABS: APPEARANCE, URINE CLEAR (CLEAR); BACTERIA, URINE AUTO 1+ (NEGATIVE); BILIRUBIN, URINE AUTO NEGATIVE (NEGATIVE); BLOOD, URINE BLOOD NEGATIVE (NEGATIVE); COLOR, URINE YELLOW (YELLOW); GLUCOSE, URINE (UA) AUTO NEGATIVE (NEGATIVE); KETONE, URINE AUTO NEGATIVE (NEGATIVE); LEUKOCYTE ESTERASE, URINE AUTO NEGATIVE (NEGATIVE); NITRITE, URINE AUTO NEGATIVE (NEGATIVE); PROTEIN, URINE AUTO NEGATIVE (NEGATIVE); RBC, URINE AUTO 0 /HPF (0-3); SPECIFIC GRAVITY URINE AUTO 1.008 (1.002-1.035); SQUAMOUS EPITHELIAL CELL UR AU 3 /HPF (0-6); UROBILINOGEN, URINE AUTO 0.2 mg/dL (0.0-2.0); WBC, URINE AUTO 1 /HPF (0-3)
[2021-05-20 09:59] LABS: HEMATOCRIT 32.4 % (36.0-47.0); HEMOGLOBIN 10.5 g/dl (12.0-15.5); MEAN CORPUSCULAR HEMOGLOBIN 28.9 pg (27.0-33.0); MEAN CORPUSCULAR HGB CONC 32.4 g/dl (32.0-36.5); MEAN CORPUSCULAR VOLUME 89.3 fl (80.0-96.0); PLATELET COUNT, AUTOMATED 286 10^3/uL (150-450); RED BLOOD COUNT 3.63 10^6/uL (4.00-5.40); WHITE BLOOD COUNT 9.7 10^3/uL (4.0-10.0)
[2021-05-20 10:26] VITALS: BP 115/69
[2021-05-20 11:01] VITALS: BP 107/63
--- NOTE | 2021-05-20 11:10 | IPNPDOC ---
Obstetrical Progress Note Date of Service May 20, 2021 Subjective 30yo at 34+1 weeks EGA. Presents for a labor check. Reports frequent, painful uterine contractions. No loss of fluid or vaginal bleeding. Reports regular, frequent movement. ROS: No WATTERS, visual changes, RUQ pain, sob, cp, n/v/f/c. 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 UA: essentially negative CBC : wnl Item Value Date Time Urine Color YELLOW 05/20/21944 Urine Appearance CLEAR 05/20/21944 Urine pH 7.0 UNITS 05/20/21944 Urine Specific [place] 1.008 05/20/21 0945 Urine Protein NEGATIVE mg/dL 05/20/21 0945 Urine Glucose (Auto)(UA) NEGATIVE mg/dL 05/20/21944 Urine Ketones (Auto) NEGATIVE mg/dL 05/20/2145 Urine Blood NEGATIVE 05/20/21944 Urine Nitrite NEGATIVE 05/20/21944 Urine Bilirubin NEGATIVE 05/20/21 09 Urine Urobilinogen 0.2 mg/dL 05/20/21 0945 Urine Leukocyte Esterase (Auto) NEGATIVE 05/20/21 0945 Urine WBC (Auto) 1 /HPF 05/20/2145 Urine RBC (Auto) 0 /HPF 05/20/21 0945 Urine Hyaline Casts (Auto) 0 /LPF 05/20/2145 Urine Bacteria (Auto) 1+ H 05/20/21944 Urine Squamous Epithelial Cells 3 /HPF 05/20/21 0945 White Blood Count 9.7 10^3/uL 05/20/21 0950 Hemoglobin 10.5 g/dl L 05/20/21 0950 Hematocrit 32.4 % L 05/20/21 0950 Platelet Count 286 10^3/uL 05/20/21 0950 A/P: 30 yo at 34+1 weeks EGA. No evidence of infection, active labor or ROM. Reassuring maternal and status. -Routine third trimester precautions given. -Follow up in office as scheduled. Chanel Rose DO FACOG. Objective Vital Signs Date Time Temp Pulse Resp B/P (MAP) Pulse Ox O2 Delivery O2 Flow Rate FiO2 05/20/21 10:26 88 20 115/69 (84) 05/20/21 09:08 98.3 99 Room Air JEANETTE ROSE DO May 20, 2021 11:10
== END 2021-05-20 11:20 | disposition home or self-care (01) ==
LOC: M LDO 08:43
PROVIDERS: ATTEND Obstetrics & Gynecology
DX: O26.893 Other specified pregnancy related conditions, third trimester (principal); Z3A.34 34 weeks gestation of pregnancy

== ENCOUNTER → 2021-05-29 | Outpatient (REF) | payer OTHER ==
[~2021-05-29] MED LIST changes: +BENA25CA4 PO; -FLUO10CA16 PO; +FLUO10CA18 PO; +IBUP80TA PO; -MONT10TA10; +MONT10TA97; +PERCOCET PO; +PROP60TA14 PO; +REGL10TA6 PO; +ZOFR4TAB16 PO
== END ==
LOC: M SFHCWAGY 16:51
PROVIDERS: ATTEND Specialist
DX: Z36.85 Encounter for antenatal screening for Streptococcus B (principal); Z3A.00 Weeks of gestation of pregnancy not specified
CPT/HCPCS: 87081; G0463

== ENCOUNTER 2021-06-01 18:02 | Outpatient (CLI) | payer OTHER ==
[~2021-06-01] VITALS: Ht 170.2 cm; Wt 97.7 kg
[~2021-06-01 18:02] MED LIST changes: -BENA25CA4 PO; +FLUO10CA16 PO; -FLUO10CA18 PO; -IBUP80TA PO; +MONT10TA10; -MONT10TA97; -PERCOCET PO; -PROP60TA14 PO
[2021-06-01 18:16] VITALS: BP 123/72
[2021-06-01] MEDS ORDERED: PROP60TA14 PO (18:27)
[2021-06-01] MEDS ORDERED: HOME MED LIST COMPLETE! XX SCH (18:30)
[2021-06-01 19:08] VITALS: BP 121/68
[2021-06-01 19:24] LABS: APPEARANCE, URINE CLOUDY (CLEAR); BACTERIA, URINE AUTO 1+ (NEGATIVE); BILIRUBIN, URINE AUTO NEGATIVE (NEGATIVE); BLOOD, URINE BLOOD NEGATIVE (NEGATIVE); COLOR, URINE YELLOW (YELLOW); GLUCOSE, URINE (UA) AUTO NEGATIVE (NEGATIVE); KETONE, URINE AUTO TRACE mg/dL (NEGATIVE); LEUKOCYTE ESTERASE, URINE AUTO NEGATIVE (NEGATIVE); MUCUS, URINE SMALL (NEGATIVE); NITRITE, URINE AUTO NEGATIVE (NEGATIVE); PROTEIN, URINE AUTO 1+ mg/dL (NEGATIVE); RBC, URINE AUTO 3 /HPF (0-3); SPECIFIC GRAVITY URINE AUTO 1.027 (1.002-1.035); SQUAMOUS EPITHELIAL CELL UR AU 17 /HPF (0-6); UROBILINOGEN, URINE AUTO 0.2 mg/dL (0.0-2.0); WBC, URINE AUTO 5 /HPF (0-3)
[2021-06-01 20:29] LABS: HEMATOCRIT 33.1 % (36.0-47.0); HEMOGLOBIN 10.5 g/dl (12.0-15.5); MEAN CORPUSCULAR HEMOGLOBIN 28.3 pg (27.0-33.0); MEAN CORPUSCULAR HGB CONC 31.7 g/dl (32.0-36.5); MEAN CORPUSCULAR VOLUME 89.2 fl (80.0-96.0); PLATELET COUNT, AUTOMATED 279 10^3/uL (150-450); RED BLOOD COUNT 3.71 10^6/uL (4.00-5.40); WHITE BLOOD COUNT 11.8 10^3/uL (4.0-10.0)
[2021-06-01 20:37] LABS: TOTAL PROTEIN,RANDOM URINE 37.6 MG/DL (0.0-12.0)
[2021-06-01 20:56] LABS: ALT/SGPT 18 U/L (12-78); BILIRUBIN,TOTAL 0.1 MG/DL (0.2-1.0); CREATININE FOR GFR 0.89 MG/DL (0.55-1.30); GLOMERULAR FILTRATION RATE > 60.0 (>60); LDH LACTATE DEHYDROGENASE 190 U/L (84-246)
--- NOTE | 2021-06-01 21:33 | IPNPDOC ---
Text Note Date of Service The patient was seen on 06/01/21. NOTE Outpatient 30yo ZACH 06/30/2021. Presents @ 35w6d with varying complaints, contractions, pelvic pressure, headache, dizziness. Denies LOF, bleeding. Reports good movement. No apparent distress VSS, afebrile, normotensive Abdomen soft, gravid Cat I tracing. Mild irregular UC SVE LTC, OOP, far posterior. Unchanged over 3+ hours UA + ketones, 1+ protein, SG 1.027 PreE panel WNL, urine ratio 0.21 Pt reports not eating since 1pm "had pizza". Reports not drinking adequately. Discharged home. Enc to increase fluids and protein intake. ALLIE, daily FKC, warnings reviewed. Keep appt Friday VS,Fishbone, I+O VS, Fishbone, I+O Laboratory Tests 06/01/21 20:12 Vital Signs Date Time Temp Pulse Resp B/P (MAP) Pulse Ox O2 Delivery O2 Flow Rate FiO2 06/01/21 19:08 97.3 90 18 121/68 (85) Angella Grande CNM Jun 01, 2021 21:33
== END 2021-06-01 21:30 | disposition home or self-care (01) ==
LOC: M LDO 18:02
PROVIDERS: ATTEND Advanced Practice Midwife
DX: O60.03 Preterm labor without delivery, third trimester (principal); R10.2 Pelvic and perineal pain; Z3A.35 35 weeks gestation of pregnancy
CPT/HCPCS: 36415; 59025; 81001; 82247; 82565; 82570; 83615; 84156; 84450; 84460; 84550; 85027; 87086; G0378; G0463

== ENCOUNTER → 2021-06-05 | Outpatient (CLI) | payer OTHER ==
[~2021-06-05] MED LIST changes: +PROP60TA14 PO
[2021-06-05 14:21] LABS: ALBUMIN 2.7 GM/DL (3.2-5.2); ALT/SGPT 19 U/L (12-78); BILIRUBIN,DIRECT < 0.1 MG/DL (0.0-0.2); BILIRUBIN,TOTAL 0.2 MG/DL (0.2-1.0); TOTAL PROTEIN 6.3 GM/DL (6.4-8.2)
== END ==
LOC: M PLALAB 11:09
PROVIDERS: ATTEND Specialist
DX: Z87.19 Personal history of other diseases of the digestive system (principal)

== ENCOUNTER → 2021-06-15 | Outpatient (CLI) | payer OTHER ==
[~2021-06-15] MED LIST changes: +BENA25CA4 PO; +IBUP80TA PO; +PERCOCET PO
== END ==
LOC: M PLALAB 13:42
PROVIDERS: ATTEND Specialist
DX: O26.613 Liver and biliary tract disorders in pregnancy, third trimester (principal); Z3A.00 Weeks of gestation of pregnancy not specified
CPT/HCPCS: 36415; 82239; G0463

== ENCOUNTER → 2021-06-16 | Outpatient (CLI) | payer MEDICAID, OTHER | LOC: M LABSMTC 11:37 | PROVIDERS: ATTEND Anesthesiology | DX: Z01.812 Encounter for preprocedural laboratory examination (principal); Z11.52 Encounter for screening for COVID-19 ==

== ENCOUNTER 2021-06-21 07:42 | Inpatient (IN) | payer OTHER ==
[~2021-06-21] VITALS: Ht 170.2 cm; Wt 101.4 kg
[2021-06-21] VITALS (7 sets, daily range): BP systolic 121–143; BP diastolic 66–92
[~2021-06-21 07:42] MED LIST changes: -BENA25CA4 PO; -IBUP80TA PO; +KETOROLAC 60MG 2ML VIAL As Ordered ONE; +MORPHINE PRES-FREE INJ 10 MG/10 ML VIAL (J2274) As Ordered ONE; +ONDANSETRON 4MG/2ML VIAL As Ordered ONE; +OXYTOCIN INJ 10 UNITS/ML VIAL (J2590) As Ordered ONE; -PERCOCET PO; +dexameTHASONE 4 MG/ML 1ML VIAL (J1100 PER 1MG) As Ordered ONE
[2021-06-21] MEDS ORDERED: LACTATED RINGER'S 1000 ML IV STA (08:11)
[2021-06-21] MEDS ORDERED: BICITRA 30ML SOLN UDC PO ONE (08:15)
[2021-06-21] MEDS ORDERED: ceFAZolin SOD 2 GM in IV 1 EA IV ONE (08:15)
[2021-06-21] MEDS ORDERED: LR 1,000 ML IV SCH ×2 (08:15→11:40)
[2021-06-21] MEDS ORDERED: MORPHINE PRES-FREE INJ 10 MG/10 ML VIAL (J2274) As Ordered ONE (08:40)
[2021-06-21] MEDS ORDERED: OXYTOCIN INJ 10 UNITS/ML VIAL (J2590) As Ordered ONE (08:40)
[2021-06-21] MEDS ORDERED: ACETAMINOPHEN 1000MG 100ML IV BTL (OFIRMEV) (J0131 PER 10MG) As Ordered ONE (08:42)
[2021-06-21 09:27] LABS: HEMATOCRIT 31.9 % (36.0-47.0); HEMOGLOBIN 10.1 g/dl (12.0-15.5); MEAN CORPUSCULAR HEMOGLOBIN 27.4 pg (27.0-33.0); MEAN CORPUSCULAR HGB CONC 31.7 g/dl (32.0-36.5); MEAN CORPUSCULAR VOLUME 86.4 fl (80.0-96.0); PLATELET COUNT, AUTOMATED 274 10^3/uL (150-450); RED BLOOD COUNT 3.69 10^6/uL (4.00-5.40); WHITE BLOOD COUNT 8.7 10^3/uL (4.0-10.0)
[2021-06-21] MEDS ORDERED: ONDANSETRON 4MG/2ML VIAL IV PRN ×3 (10:33→11:40)
[2021-06-21] MEDS ORDERED: diphenhydrAMINE 50MG/ML VIAL (J1200) IV PRN (10:33)
[2021-06-21] MEDS ORDERED: NALOXONE INJ 0.4MG/1ML VIAL (J2310 PER 1MG) IV PRN ×2 (10:33)
[2021-06-21] MEDS ORDERED: METOCLOPRAMIDE INJ 10MG/2ML VIAL (J2765 PER 1) IV PRN ×2 (10:33→11:40)
[2021-06-21] MEDS ORDERED: NALBUPHINE HCL 10 MG/ML AMP (J2300) IV PRN (10:33)
[2021-06-21] MEDS ORDERED: dexameTHASONE 4 MG/ML 1ML VIAL (J1100 PER 1MG) As Ordered ONE ×2 (10:39→10:40)
[2021-06-21] MEDS ORDERED: ONDANSETRON 4MG/2ML VIAL As Ordered ONE (10:40)
[2021-06-21] MEDS ORDERED: KETOROLAC 60MG 2ML VIAL As Ordered ONE (10:40)
[2021-06-21] MEDS ORDERED: PHENYLephrine 500MCG 5ML (100MCG/ML) SYRINGE As Ordered ONE (10:40)
[2021-06-21] MEDS ORDERED: ePHEDrine SULFATE 25 MG/5 ML(5MG/ML) SYRINGE As Ordered ONE (10:41)
[2021-06-21] MEDS ORDERED: METOCLOPRAMIDE INJ 10MG/2ML VIAL (J2765 PER 1) As Ordered ONE (10:55)
[2021-06-21] MEDS ORDERED: SIMETHICONE 80MG CHEW TAB PO PRN (11:30)
[2021-06-21] MEDS ORDERED: MEASLES,MUMPS,RUBELLA VACCINE INJ (MMR-II) (90707) SC SCH (11:30)
[2021-06-21] MEDS ORDERED: PERCOCET 5MG/325MG TAB PO PRN ×2 (11:30→11:40)
[2021-06-21] MEDS ORDERED: RHOGAM 300 MCG (1500 IU) INJ (J2790) IM SCH (11:30)
--- NOTE | 2021-06-21 11:44 | ROOPDOC ---
[facility] Report Of Operation Report of Operation DATE OF PROCEDURE: 06/21/21 Report of operation Preoperative diagnosis:38 5/7 weeks gestation, cholestasis of , rectal bleeding from ulcerative colitis, possible gestational hypertension Postoperative diagnosis: Same Procedure: Primary low transverse section. Surgeon: Aisha Verduzco M.D. Asst.: James Stroud MD EBL: 700 ml. Urine output: 100 mL's. Findings: 6 lbs. 12 oz. male , 's 8 and 9, normal uterus, fallopian tubes, ovaries. Operative summary: Patient taken to the operating room where spinal anesthesia was induced. She was prepped and draped in a sterile fashion in the supine position. A Oshea catheter was placed. A Pfannenstiel skin incision was made with scalpel. Fascia was incised and extended bilaterally. The fascia was dissected off the rectus muscles. The peritoneal cavity was entered. A Mobius retractor was placed. A bladder flap was created. A curvilinear incision was made in lower uterine segment until Clear fluid was noted. Numerous sinuses in the lower uterine segment were noted. The incision was extended manually. The infant was delivered from the vertex position without difficulty. Cord was double clamped and cut. The infant was handed to the awaiting nurses. The placenta was expressed. Uterus was closed with O-Vicryl in a running locked fashion. A second imbricating layer of Vicryl was placed. Peritoneum was closed with 2-0 Vicryl a running fashion. Fascia was closed with 0 Vicryl in running fashion. Skin was closed 4-0 Monocryl subcuticular sutures. Sponge, instrument and needle counts were correct. James Stroud MD, assisted with all aspects of the procedure. She helped close each layer of the incision and deliver the fetus. AISHA VERDUZCO MD Jun 21, 2021 11:44
[2021-06-21] MEDS ORDERED: OXYTOCIN 30 UNITS IN 0.9% NaCl 500ML IV BAG (J2590) As Ordered ONE (11:49)
[2021-06-21] MEDS ORDERED: OXYTOCIN DRIP 30 UNITS in IV 1 EA IV ONE (11:55)
[2021-06-21] MEDS ORDERED: fentaNYL 100 MCG/2 ML INJECTION (J3010) As Ordered ONE (12:01)
[2021-06-21] MEDS: fentaNYL 100 MCG/2 ML INJECTION (J3010) IV PRN ×2 (12:04→12:17)
[2021-06-21] MEDS ORDERED: BENA25CA4 PO (13:16)
[2021-06-21] MEDS: KETOROLAC 30 MG/ML 1ML VIAL IV SCH ×2 (16:39→23:46)
[2021-06-21] MEDS: PERCOCET 5MG/325MG TAB PO PRN (16:40)
[2021-06-21] MEDS ORDERED: LACTATED RINGER'S 1000 ML IV ONE (18:50)
[2021-06-21] MEDS ORDERED: IBUP80TA PO (21:44)
[2021-06-21] MEDS ORDERED: OXYC1TAB23 PO (21:44)
[2021-06-21] MEDS: DOCUSATE SODIUM 100MG CAPSULE PO PRN ×2 (23:52→23:53)
[2021-06-22 02:00] VITALS: BP 121/70
[2021-06-22] MEDS: PERCOCET 5MG/325MG TAB PO PRN ×4 (02:00→21:38)
[2021-06-22] MEDS: KETOROLAC 30 MG/ML 1ML VIAL IV SCH (05:30)
[2021-06-22 06:00] VITALS: BP 125/64
[2021-06-22 06:03] LABS: HEMATOCRIT 25.9 % (36.0-47.0); MEAN CORPUSCULAR HEMOGLOBIN 27.2 pg (27.0-33.0); MEAN CORPUSCULAR HGB CONC 30.9 g/dl (32.0-36.5); MEAN CORPUSCULAR VOLUME 88.1 fl (80.0-96.0); PLATELET COUNT, AUTOMATED 254 10^3/uL (150-450); RED BLOOD COUNT 2.94 10^6/uL (4.00-5.40)
[2021-06-22] MEDS: PRENATAL VITAMINS CHEWABLE TABLET PO SCH (08:02)
[2021-06-22 10:00] VITALS: BP 151/70
--- NOTE | 2021-06-22 11:13 | IPNPDOC ---
Progress Note Date of Service: Jun 22, 2021 Day#: 1 Progress Note SUBJECT: Rima is a 30-year-old female who had a primary section related to rectal bleeding from ulcerative colitis. She also had a diagnosis of cholestasis and found to also have GHTN. She had an uncomplicated section of a living male weighting 6 lbs 12 oz. She reports she has been doing well. She is ambulating without dizziness, tolerating a regular diet, and voiding. She is bottle feeding. Denies any preeclamptic symptoms. OBJECTIVE: VITAL SIGNS: see below. Alert and oriented times three. Sitting up in bed bottle feeding her . Respiratory rate is regular without use of accessory muscles. Abdomen: Fundus firm. Dressing intact. No bruising or erythema around incision. Minimal lochia. ASSESSMENT: Day 1 postoperative with GHTN PLAN: 1. Continue supportive nursing care. 2. Patient to shower and ambulate around room today. 3. Anticipate discharge to home tomorrow. VS, I&O, 24H, Fishbone Vital Signs/I&O Vital Signs Date Time Temp Pulse Resp B/P (MAP) Pulse Ox O2 Delivery O2 Flow Rate FiO2 06/22/21 10:00 98.0 96 151/70 (97) 99 06/22/21 09:05 18 06/22/21 06:00 Room Air I&O- Last 24 Hours up to 6 AM 06/22/21 06:00 Intake Total 3438 ml Output Total 2510 ml Balance 928 ml Laboratory Data 24H LABS Laboratory Tests 2 06/22/21 05:42: Nucleated Red Blood Cells % (auto) 0.0 CBC/BMP Laboratory Tests 06/22/21 05:42 ARMIN PAYAN CNM Jun 22, 2021 11:13
[2021-06-22] MEDS: IBUPROFEN 800 MG TAB PO SCH ×2 (13:10→20:22)
[2021-06-22 14:00] VITALS: BP_SYST 132; BP_SYST 151; BP_DIAS 67; BP_DIAS 70
[2021-06-22 18:00] VITALS: BP 106/59
[2021-06-22 22:00] VITALS: BP 127/67
[2021-06-23 02:00] VITALS: BP 115/59
[2021-06-23] MEDS: IBUPROFEN 800 MG TAB PO SCH (04:27)
[2021-06-23] MEDS: PERCOCET 5MG/325MG TAB PO PRN ×2 (05:40→11:34)
[2021-06-23 06:00] VITALS: BP 126/75
[2021-06-23] MEDS: PRENATAL VITAMINS CHEWABLE TABLET PO SCH (08:15)
[2021-06-23] MEDS ORDERED: PERCOCET PO (10:17)
[2021-06-23] MEDS ORDERED: IBUP80TA PO (10:17)
--- NOTE | 2021-06-23 10:47 | DS.PDOC ---
Discharge Summary General Date of Admission Jun 21, 2021 at 07:42 Date of Discharge June 23, 2021 Attending Physician: AISHA VERDUZCO MD Discharge Summary PROCEDURES PERFORMED DURING STAY: 1 section 2. Spinal anesthesia. ADMITTING DIAGNOSES: 1. 1. Cholestasis of 2. Rectal bleeding from ulcerative colitis 3. Gestational hypertension. DISCHARGE DIAGNOSES: 1. Same as above. COMPLICATIONS/CHIEF COMPLAINT: Rectal Bleeding. HISTORY OF PRESENT ILLNESS: Mrs. Whyte presented for scheduled section. She underwent a repeat section, productive of live born male a Apgars were 8 and 9 weight was 6 lbs. 12 oz. Estimated blood loss 700ml. Patient did well postoperatively by postoperative day #2 had met all discharge criteria is as discharged home in stable condition DISCHARGE MEDICATIONS: Please see below. ALLERGIES: Please see below. PHYSICAL EXAMINATION ON DISCHARGE: VITAL SIGNS: Please see below. GENERAL: No distress HEENT: WNL ABDOMINAL EXAMINATION: Fundus firm. Dressing intact EXTREMITIES: Equal strength and motion SKIN: Intact NEUROLOGICAL EXAMINATION: Grossly intact PSYCHIATRIC EXAMINATION: Appropriate LABORATORY DATA: Please see below. PROGNOSIS: Good ACTIVITY: As tolerated. Pelvic rest. DIET: As tolerated DISCHARGE PLAN: Discharge today. Remove dressing day 5 DISPOSITION: Home DISCHARGE INSTRUCTIONS: 1. Pelvic rest. Continue vitamins. Medications as ordered. Call with fever, nausea, vomiting, chills, foul lochia, wound exudate or evidence infection. RTO 2week for incision check. DISCHARGE CONDITION: Stable Vital Signs/I&Os Vital Signs Date Time Temp Pulse Resp B/P (MAP) Pulse Ox O2 Delivery O2 Flow Rate FiO2 06/23/21 06:13 16 06/23/21 06:00 97.5 73 126/75 (92) 98 06/23/21 02:00 Room Air Discharge Medications Scheduled Ibuprofen (Ibuprofen) 800 Mg Tablet, 800 MG PO Q8H Omeprazole (Omeprazole) 10 Mg Capsule.dr, 40 MG PO DAILY, (Reported) Vit,Calc76/Iron/Folic (Prenatabs Rx Tablet) 1 Each Tablet, 1 TAB PO DAILY, (Reported) Propranolol HCl (Propranolol HCl) 20 Mg Tablet, 20 MG PO BID, (Reported) Scheduled PRN Diphenhydramine HCl (Benadryl) 25 Mg Capsule, 1-2 CAP PO QHS PRN for ITCHING, (Reported) Oxycodone/Acetaminophen (Oxycodone-Acetaminophen 5-325) 1 Each Tablet, 1 TAB PO Q4H PRN for MODERATE PAIN (PS 5-7) Allergies Coded Allergies: Coconut (Verified Allergy, Intermediate, COCONUT WATER; ITCHING, LIPS TINGLE, 06/21/21) ENVIRONMENTAL (Verified Allergy, Intermediate, hives, 06/11/21) SHAD HACKETT MD. Jun 23, 2021 10:47
[2021-06-23 11:00] VITALS: BP 134/66
== END 2021-06-23 13:30 | disposition home or self-care (01) | DRG 771 ==
LOC: M LDI 07:42 → M OBS 14:23
PROVIDERS: ADMIT Specialist; ATTEND Specialist
PROC: 10D00Z1 Extraction of Products of Conception, Low, Open Approach (ICD-10-PCS; principal; 2021-06-21 09:30)
DX: O26.62 Liver and biliary tract disorders in childbirth (principal); K83.1 Obstruction of bile duct; K51.911 Ulcerative colitis, unspecified with rectal bleeding; O99.62 Diseases of the digestive system complicating childbirth; O13.4 Gestational [pregnancy-induced] hypertension without significant proteinuria, complicating childbirth; Z3A.38 38 weeks gestation of pregnancy; Z37.0 Single live birth

== ENCOUNTER → 2021-11-23 | Outpatient (CLI) | payer OTHER ==
[~2021-11-23] MED LIST changes: +BENA25CA4 PO; -FLUO10CA16 PO; +FLUO10CA18 PO; +IBUP80TA PO; -KETOROLAC 60MG 2ML VIAL As Ordered ONE; -MONT10TA10; +MONT10TA97; -MORPHINE PRES-FREE INJ 10 MG/10 ML VIAL (J2274) As Ordered ONE; -ONDANSETRON 4MG/2ML VIAL As Ordered ONE; -OXYTOCIN INJ 10 UNITS/ML VIAL (J2590) As Ordered ONE; +PERCOCET PO; -dexameTHASONE 4 MG/ML 1ML VIAL (J1100 PER 1MG) As Ordered ONE
[2021-11-23 14:06] LABS: BASO # 0.1 10^3/uL (0.0-0.2); BASO % 0.6 % (0.0-1.0); EOS # 0.1 10^3/uL (0.0-0.5); EOS % 0.8 % (0.0-3.0); HEMATOCRIT 41.1 % (36.0-47.0); HEMOGLOBIN 13.1 g/dl (12.0-15.5); LYMPH # 2.5 10^3/uL (1.5-5.0); LYMPH % 29.3 % (24.0-44.0); MEAN CORPUSCULAR HEMOGLOBIN 27.2 pg (27.0-33.0); MEAN CORPUSCULAR HGB CONC 31.9 g/dl (32.0-36.5); MEAN CORPUSCULAR VOLUME 85.4 fl (80.0-96.0); MONO # 0.7 10^3/uL (0.0-0.8); MONO % 8.9 % (2.0-8.0); NEUTROPHILS % 59.7 % (36.0-66.0); PLATELET COUNT, AUTOMATED 336 10^3/uL (150-450); RED BLOOD COUNT 4.81 10^6/uL (4.00-5.40); WHITE BLOOD COUNT 8.4 10^3/uL (4.0-10.0)
[2021-11-23 15:16] LABS: HEPATITIS C VIRUS ABY INDEX 0.1 INDEX (<0.8); HIV 1&2 SCREEN CENTAUR NEGATIVE (NEGATIVE)
== END ==
LOC: M PLALAB 10:39
PROVIDERS: ATTEND Advanced Practice Midwife
DX: Z36.89 Encounter for other specified antenatal screening (principal); Z79.899 Other long term (current) drug therapy

== ENCOUNTER → 2021-11-27 | Outpatient (REF) | payer OTHER ==
[~2021-11-27] MED LIST changes: +ALBU2.5V10 INH; -ALBU83IN INH
[2021-11-28 12:58] LABS: GC DNA AMPLIFICATION NEGATIVE (NEGATIVE)
== END ==
LOC: M SFHCWAGY 13:07
PROVIDERS: ATTEND Advanced Practice Midwife
DX: Z36.89 Encounter for other specified antenatal screening (principal); Z79.899 Other long term (current) drug therapy

== ENCOUNTER → 2021-12-25 | Outpatient (CLI) | payer OTHER | LOC: M PLALAB 12:28 | PROVIDERS: ATTEND Advanced Practice Midwife | DX: Z36.9 Encounter for antenatal screening, unspecified (principal) | CPT/HCPCS: 36415; G0463 ==

== ENCOUNTER → 2022-01-22 | Outpatient (CLI) | payer OTHER | LOC: M WHC 07:56 | PROVIDERS: ATTEND Advanced Practice Midwife | DX: Z53.29 Procedure and treatment not carried out because of patient's decision for other reasons (principal) ==

== ENCOUNTER → 2022-02-27 | Outpatient (CLI) | payer OTHER | LOC: M WHC 09:06 | PROVIDERS: ATTEND Obstetrics & Gynecology | DX: O34.211 Maternal care for low transverse scar from previous cesarean delivery (principal); Z3A.21 21 weeks gestation of pregnancy ==

== ENCOUNTER → 2022-03-11 | Outpatient (CLI) | payer OTHER ==
[2022-03-11 15:42] LABS: HEMATOCRIT 33.9 % (36.0-47.0); HEMOGLOBIN 10.8 g/dl (12.0-15.5); MEAN CORPUSCULAR HEMOGLOBIN 28.7 pg (27.0-33.0); MEAN CORPUSCULAR HGB CONC 31.9 g/dl (32.0-36.5); MEAN CORPUSCULAR VOLUME 90.2 fl (80.0-96.0); PLATELET COUNT, AUTOMATED 284 10^3/uL (150-450); RED BLOOD COUNT 3.76 10^6/uL (4.00-5.40)
[2022-03-11 17:21] LABS: TOTAL PROTEIN,RANDOM URINE 20.9 MG/DL (0.0-12.0)
[2022-03-11 17:57] LABS: ALBUMIN 2.6 GM/DL (3.2-5.2); ALT/SGPT 10 U/L (12-78); BILIRUBIN,TOTAL 0.1 MG/DL (0.2-1.0); BLOOD UREA NITROGEN 9 MG/DL (7-18); CALCIUM LEVEL 8.9 MG/DL (8.5-10.1); CARBON DIOXIDE LEVEL 25 MEQ/L (21-32); CHLORIDE LEVEL 105 MEQ/L (98-107); CREATININE FOR GFR 0.74 MG/DL (0.55-1.30); GLOMERULAR FILTRATION RATE > 60.0 (>60); GLUCOSE, FASTING 92 MG/DL (70-100); POTASSIUM SERUM 4.4 MEQ/L (3.5-5.1); SODIUM LEVEL 137 MEQ/L (136-145); TOTAL PROTEIN 6.2 GM/DL (6.4-8.2)
== END ==
LOC: M PLALAB 13:41
PROVIDERS: ATTEND Advanced Practice Midwife
DX: O99.712 Diseases of the skin and subcutaneous tissue complicating pregnancy, second trimester (principal); Z3A.00 Weeks of gestation of pregnancy not specified

== ENCOUNTER → 2022-03-19 | Outpatient (CLI) | payer OTHER | LOC: M WHC 11:39 | PROVIDERS: ATTEND Advanced Practice Midwife | DX: Z53.9 Procedure and treatment not carried out, unspecified reason (principal); Z34.82 Encounter for supervision of other normal pregnancy, second trimester ==

== ENCOUNTER 2022-03-23 10:16 | Outpatient (CLI) | payer OTHER ==
[~2022-03-23] VITALS: Ht 170.2 cm; Wt 98.8 kg
[2022-03-23 10:30] VITALS: BP 133/77
[2022-03-23] MEDS ORDERED: OMEP1CAP71 PO (10:36)
[2022-03-23] MEDS ORDERED: ACET325C5 PO (10:36)
[2022-03-23 11:26] LABS: APPEARANCE, URINE MANUAL CLEAR (CLEAR); COLOR, URINE MANUAL YELLOW (YELLOW)
[2022-03-23 11:33] LABS: BILIRUBIN, URINE MANUAL NEGATIVE (NEGATIVE); BLOOD URINE MANUAL NEGATIVE (NEGATIVE); GLUCOSE, URINE (UA) MANUAL NEGATIVE (NEGATIVE); KETONE, URINE MANUAL NEGATIVE (NEGATIVE); LEUKOCYTE ESTERASE, URINE MAN NEGATIVE (NEGATIVE); NITRITE, URINE MANUAL NEGATIVE (NEGATIVE); PROTEIN, URINE MANUAL NEGATIVE (NEGATIVE); UROBILINOGEN, URINE MANUAL NORMAL (NORMAL)
[2022-03-23 11:42] LABS: HEMOGLOBIN 10.6 g/dl (12.0-15.5); MEAN CORPUSCULAR HEMOGLOBIN 28.8 pg (27.0-33.0); MEAN CORPUSCULAR HGB CONC 32.1 g/dl (32.0-36.5); MEAN CORPUSCULAR VOLUME 89.7 fl (80.0-96.0); PLATELET COUNT, AUTOMATED 286 10^3/uL (150-450); RED BLOOD COUNT 3.68 10^6/uL (4.00-5.40); WHITE BLOOD COUNT 8.2 10^3/uL (4.0-10.0)
[2022-03-23] MEDS ORDERED: HOME MED LIST COMPLETE! XX SCH (11:45)
[2022-03-23 12:20] LABS: ALBUMIN 2.7 GM/DL (3.2-5.2); ALT/SGPT 10 U/L (12-78); BILIRUBIN,TOTAL 0.1 MG/DL (0.2-1.0); BLOOD UREA NITROGEN 9 MG/DL (7-18); CALCIUM LEVEL 8.9 MG/DL (8.5-10.1); CARBON DIOXIDE LEVEL 25 MEQ/L (21-32); CHLORIDE LEVEL 106 MEQ/L (98-107); CREATININE FOR GFR 0.67 MG/DL (0.55-1.30); GLOMERULAR FILTRATION RATE > 60.0 (>60); GLUCOSE, FASTING 91 MG/DL (70-100); LIPASE 102 U/L (73-393); POTASSIUM SERUM 3.9 MEQ/L (3.5-5.1); SODIUM LEVEL 136 MEQ/L (136-145)
[2022-03-23] MEDS ORDERED: ACETAMINOPHEN 500 MG TAB PO ONE (12:45)
== END 2022-03-23 12:55 | disposition home or self-care (01) ==
LOC: M LDO 10:16
PROVIDERS: ATTEND Specialist
DX: O26.893 Other specified pregnancy related conditions, third trimester (principal); R10.11 Right upper quadrant pain; Z3A.25 25 weeks gestation of pregnancy
CPT/HCPCS: 36415; 59025; 80053; 81002; 83690; 85027; G0463

== ENCOUNTER → 2022-03-27 | Outpatient (CLI) | payer OTHER ==
[~2022-03-27] MED LIST changes: +ACET325C5 PO; +OMEP1CAP71 PO
[2022-03-27 14:19] LABS: HEMATOCRIT 33.5 % (36.0-47.0); HEMOGLOBIN 10.8 g/dl (12.0-15.5); MEAN CORPUSCULAR HEMOGLOBIN 29.1 pg (27.0-33.0); MEAN CORPUSCULAR HGB CONC 32.2 g/dl (32.0-36.5); MEAN CORPUSCULAR VOLUME 90.3 fl (80.0-96.0); PLATELET COUNT, AUTOMATED 293 10^3/uL (150-450); RED BLOOD COUNT 3.71 10^6/uL (4.00-5.40); WHITE BLOOD COUNT 8.7 10^3/uL (4.0-10.0)
== END ==
LOC: M PLALAB 10:33
PROVIDERS: ATTEND Advanced Practice Midwife
DX: Z36.89 Encounter for other specified antenatal screening (principal)

== ENCOUNTER → 2022-04-04 | Outpatient (CLI) | payer OTHER | LOC: M WHC 10:39 | PROVIDERS: ATTEND Advanced Practice Midwife | DX: Z34.82 Encounter for supervision of other normal pregnancy, second trimester (principal) ==

== ENCOUNTER → 2022-04-16 | Outpatient (CLI) | payer OTHER | LOC: M PLALAB 10:12 | PROVIDERS: ATTEND Specialist | DX: Z36.89 Encounter for other specified antenatal screening (principal) | CPT/HCPCS: 36415; 82239; G0463 ==

== ENCOUNTER → 2022-04-30 | Outpatient (CLI) | payer OTHER | LOC: M PLALAB 12:32 | PROVIDERS: ATTEND Obstetrics & Gynecology | DX: O34.211 Maternal care for low transverse scar from previous cesarean delivery (principal) ==

== ENCOUNTER 2022-05-12 12:20 | Outpatient (CLI) | payer OTHER ==
[~2022-05-12] VITALS: Ht 170.2 cm; Wt 102.9 kg
[2022-05-12 12:37] VITALS: BP 95/52
[2022-05-12] MEDS ORDERED: OMEP-173 PO (12:48)
[2022-05-12] MEDS ORDERED: URSO1TAB7 PO (12:48)
[2022-05-12] MEDS ORDERED: HOME MED LIST COMPLETE! XX SCH (12:50)
[2022-05-12 13:06] VITALS: BP 116/70
== END 2022-05-12 14:03 | disposition home or self-care (01) ==
LOC: M LDO 12:20
PROVIDERS: ATTEND Obstetrics & Gynecology
DX: O26.893 Other specified pregnancy related conditions, third trimester (principal); N89.8 Other specified noninflammatory disorders of vagina; Z3A.33 33 weeks gestation of pregnancy
CPT/HCPCS: 59025; 76815; G0463

== ENCOUNTER 2022-06-04 10:48 | Outpatient (CLI) | payer OTHER ==
[~2022-06-04] VITALS: Ht 170.2 cm; Wt 102.4 kg
[~2022-06-04 10:48] MED LIST changes: +OMEP-173 PO; +URSO1TAB7 PO
[2022-06-04] MEDS ORDERED: OMEP40CA4 PO (11:25)
[2022-06-04] MEDS ORDERED: URSO300C3 PO (11:28)
[2022-06-04] MEDS ORDERED: BENA25CA4 PO (11:29)
[2022-06-04] MEDS ORDERED: HOME MED LIST COMPLETE! XX SCH (11:30)
[2022-06-04 11:32] VITALS: BP 124/67
[2022-06-04 12:47] VITALS: BP 100/55
[2022-06-04 13:13] VITALS: BP 127/76
[2022-06-04] MEDS ORDERED: BETAMETHASONE SOLUSPAN 6MG/ML 5ML VIAL (J0702 PER 3MG) IM ONE (13:15)
[2022-06-04 14:21] LABS: HEMATOCRIT 31.6 % (36.0-47.0); HEMOGLOBIN 9.4 g/dl (12.0-15.5); MEAN CORPUSCULAR HEMOGLOBIN 25.1 pg (27.0-33.0); MEAN CORPUSCULAR HGB CONC 29.7 g/dl (32.0-36.5); MEAN CORPUSCULAR VOLUME 84.5 fl (80.0-96.0); PLATELET COUNT, AUTOMATED 312 10^3/uL (150-450); RED BLOOD COUNT 3.74 10^6/uL (4.00-5.40); WHITE BLOOD COUNT 8.5 10^3/uL (4.0-10.0)
[2022-06-04 14:59] VITALS: BP 102/58
[2022-06-04 15:08] LABS: ALBUMIN 2.6 G/DL (3.2-5.2); ALT/SGPT < 9 U/L (7.0-40); BILIRUBIN,TOTAL 0.2 MG/DL (0.3-1.2); BLOOD UREA NITROGEN 9 MG/DL (9-23); CALCIUM LEVEL 8.9 MG/DL (8.5-10.1); CARBON DIOXIDE LEVEL 25 MMOL/L (20-31); CHLORIDE LEVEL 102 MMOL/L (98-107); CREATININE FOR GFR 0.68 MG/DL (0.55-1.30); GLOMERULAR FILTRATION RATE > 60.0 (>60); GLUCOSE, FASTING 80 MG/DL (60-100); POTASSIUM SERUM 4.2 MMOL/L (3.5-5.1); SODIUM LEVEL 136 MMOL/L (136-145); TOTAL PROTEIN 5.7 G/DL (5.7-8.2)
== END 2022-06-04 15:35 | disposition home or self-care (01) ==
LOC: M LDO 10:48
PROVIDERS: ATTEND Obstetrics & Gynecology
DX: O60.03 Preterm labor without delivery, third trimester (principal); O26.613 Liver and biliary tract disorders in pregnancy, third trimester; O99.713 Diseases of the skin and subcutaneous tissue complicating pregnancy, third trimester; L29.9 Pruritus, unspecified; O99.343 Other mental disorders complicating pregnancy, third trimester; F32.A Depression, unspecified; F41.9 Anxiety disorder, unspecified; O99.613 Diseases of the digestive system complicating pregnancy, third trimester; K21.9 Gastro-esophageal reflux disease without esophagitis; Z3A.35 35 weeks gestation of pregnancy
CPT/HCPCS: 36415; 59025; 76815; 80053; 82239; 85027; 96372; G0463; J0702

== ENCOUNTER 2022-06-05 13:59 | Outpatient (CLI) | payer OTHER ==
[~2022-06-05] VITALS: Ht 170.2 cm; Wt 101.8 kg
[~2022-06-05 13:59] MED LIST changes: +OMEP40CA4 PO; +URSO300C3 PO
[2022-06-05 14:18] VITALS: BP 131/74
[2022-06-05] MEDS ORDERED: HOME MED LIST COMPLETE! XX SCH (14:25)
[2022-06-05] MEDS ORDERED: BETAMETHASONE SOLUSPAN 6MG/ML 5ML VIAL (J0702 PER 3MG) IM ONE (15:00)
== END 2022-06-05 14:32 | disposition home or self-care (01) ==
LOC: M LDO 13:59
PROVIDERS: ATTEND Advanced Practice Midwife
DX: O60.03 Preterm labor without delivery, third trimester (principal); O26.613 Liver and biliary tract disorders in pregnancy, third trimester; O99.713 Diseases of the skin and subcutaneous tissue complicating pregnancy, third trimester; L29.9 Pruritus, unspecified; Z3A.35 35 weeks gestation of pregnancy
CPT/HCPCS: 96372; J0702

== ENCOUNTER → 2022-06-10 | Outpatient (REF) | payer OTHER | LOC: M SFHCWAGY 15:09 | PROVIDERS: ATTEND Specialist | DX: Z36.85 Encounter for antenatal screening for Streptococcus B (principal); Z34.83 Encounter for supervision of other normal pregnancy, third trimester ==

== ENCOUNTER → 2022-06-17 | Outpatient (CLI) | payer OTHER ==
[~2022-06-17] MED LIST changes: +OMEP-173
== END ==
LOC: M LABSMTC 09:23
PROVIDERS: ATTEND Anesthesiology
DX: Z01.812 Encounter for preprocedural laboratory examination (principal); Z20.822 Contact with and (suspected) exposure to COVID-19

== ENCOUNTER 2022-06-20 05:24 | Inpatient (IN) | payer OTHER ==
[~2022-06-20] VITALS: Ht 170.2 cm; Wt 102.0 kg
[2022-06-20] VITALS (9 sets, daily range): BP systolic 114–144; BP diastolic 56–83
[2022-06-20] MEDS ORDERED: HOME MED LIST COMPLETE! XX SCH (05:40)
[2022-06-20] MEDS ORDERED: ceFAZolin SOD 2 GM in IV 1 EA IV ONE (05:45)
[2022-06-20] MEDS ORDERED: LR 800 ML IV ONE (05:45)
[2022-06-20] MEDS ORDERED: BICITRA 30ML SOLN UDC PO ONE (05:45)
[2022-06-20 06:20] LABS: HEMATOCRIT 33.2 % (36.0-47.0); HEMOGLOBIN 10.1 g/dl (12.0-15.5); MEAN CORPUSCULAR HEMOGLOBIN 25.3 pg (27.0-33.0); MEAN CORPUSCULAR HGB CONC 30.4 g/dl (32.0-36.5); PLATELET COUNT, AUTOMATED 290 10^3/uL (150-450); WHITE BLOOD COUNT 11.7 10^3/uL (4.0-10.0)
[2022-06-20] MEDS ORDERED: LR 1,000 ML IV SCH ×2 (06:30→08:30)
[2022-06-20] MEDS ORDERED: ONDANSETRON 4MG 2ML VIAL As Ordered ONE (07:15)
[2022-06-20] MEDS ORDERED: OXYTOCIN INJ 10UNITS/ML 1ML VIAL As Ordered ONE (07:15)
[2022-06-20] MEDS ORDERED: KETOROLAC 60MG 2ML VIAL As Ordered ONE (07:15)
[2022-06-20] MEDS ORDERED: fentaNYL 100 MCG/2 ML INJECTION As Ordered ONE (07:15)
[2022-06-20] MEDS ORDERED: MORPHINE PRES-FREE INJ 10 MG/10 ML VIAL As Ordered ONE (07:16)
[2022-06-20] MEDS ORDERED: ePHEDrine SULFATE 25 MG/5 ML(5MG/ML) SYRINGE As Ordered ONE (08:10)
[2022-06-20] MEDS ORDERED: PHENYLephrine 500MCG 5ML (100MCG/ML) SYRINGE As Ordered ONE (08:10)
[2022-06-20] MEDS ORDERED: OXYTOCIN DRIP 30 UNITS in IV 1 EA IV SCH (08:45)
[2022-06-20] MEDS ORDERED: PERCOCET 5MG/325MG TAB PO PRN (08:45)
[2022-06-20] MEDS ORDERED: DOCUSATE SODIUM 100MG CAPSULE PO PRN (08:45)
[2022-06-20] MEDS ORDERED: SIMETHICONE 80MG CHEW TAB PO PRN (08:45)
[2022-06-20] MEDS ORDERED: RHOGAM 300 MCG (1500 IU) INJ (J2790) IM SCH (08:45)
[2022-06-20] MEDS ORDERED: ONDANSETRON 4MG TAB PO PRN (08:45)
[2022-06-20] MEDS: PRENATAL VITAMINS CHEWABLE TABLET PO SCH (09:00)
[2022-06-20] MEDS ORDERED: fentaNYL 100 MCG/2 ML INJECTION IV PRN (09:35)
[2022-06-20] MEDS ORDERED: oxyCODONE 5MG TAB PO PRN (09:35)
[2022-06-20] MEDS ORDERED: ONDANSETRON 4MG 2ML VIAL IV PRN (09:35)
[2022-06-20] MEDS ORDERED: NALOXONE INJ 0.4MG/1ML VIAL IV PRN ×2 (09:35)
[2022-06-20] MEDS ORDERED: OXYTOCIN 30 UNITS IN 0.9% NaCl 500ML IV BAG (J2590) As Ordered ONE (09:36)
[2022-06-20] MEDS ORDERED: **NOTE PATIENT COMMENT** MISC XX SCH (09:45)
[2022-06-20] MEDS ORDERED: METOCLOPRAMIDE INJ 10MG/2ML VIAL IV PRN (09:45)
[2022-06-20] MEDS: SLF 3 ML SYR IV SCH ×2 (09:45→17:45)
[2022-06-20] MEDS ORDERED: diphenhydrAMINE 50MG/ML VIAL IV PRN (09:45)
[2022-06-20] MEDS: PERCOCET 5MG/325MG TAB PO PRN ×3 (12:01→23:20)
[2022-06-20] MEDS: KETOROLAC 30 MG/ML 1ML VIAL IV SCH ×2 (15:00→21:18)
[2022-06-21 02:00] VITALS: BP 108/57
[2022-06-21] MEDS: SLF 3 ML SYR IV SCH (02:39)
[2022-06-21] MEDS: KETOROLAC 30 MG/ML 1ML VIAL IV SCH (02:39)
[2022-06-21] MEDS ORDERED: IBUP80TA PO (05:52)
[2022-06-21] MEDS ORDERED: OXYC1TAB23 PO (05:52)
[2022-06-21 06:00] VITALS: BP 106/63
[2022-06-21 06:44] LABS: HEMATOCRIT 25.9 % (36.0-47.0); HEMOGLOBIN 7.8 g/dl (12.0-15.5); MEAN CORPUSCULAR HEMOGLOBIN 25.3 pg (27.0-33.0); MEAN CORPUSCULAR HGB CONC 30.1 g/dl (32.0-36.5); MEAN CORPUSCULAR VOLUME 84.1 fl (80.0-96.0); PLATELET COUNT, AUTOMATED 235 10^3/uL (150-450); RED BLOOD COUNT 3.08 10^6/uL (4.00-5.40); WHITE BLOOD COUNT 11.7 10^3/uL (4.0-10.0)
[2022-06-21] MEDS: PERCOCET 5MG/325MG TAB PO PRN ×2 (07:16→12:33)
[2022-06-21] MEDS: PRENATAL VITAMINS CHEWABLE TABLET PO SCH (07:16)
[2022-06-21 09:57] VITALS: BP 107/59
[2022-06-21] MEDS ORDERED: IBUPROFEN 800 MG TAB PO SCH (11:00)
[2022-06-22] MEDS ORDERED: MEASLES,MUMPS,RUBELLA VACCINE INJ (MMR-II) (90707) SC.IMMUN ONE (09:00)
== END 2022-06-21 13:15 | disposition home or self-care (01) | DRG 771 ==
LOC: M LDI 05:24 → M OBS 10:20
PROVIDERS: ADMIT Specialist; ATTEND Specialist
PROC: 10D00Z1 Extraction of Products of Conception, Low, Open Approach (ICD-10-PCS; principal; 2022-06-20 07:30)
DX: O26.62 Liver and biliary tract disorders in childbirth (principal); K83.1 Obstruction of bile duct; O34.211 Maternal care for low transverse scar from previous cesarean delivery; Z3A.38 38 weeks gestation of pregnancy; Z37.0 Single live birth